=== PATIENT | male | born 1935 | race Caucasian/White ===

== ENCOUNTER 2021-02-25 09:23 | Outpatient (REF) | payer MEDICARE, OTHER, SELFPAY ==
[2021-02-25 11:28] LABS: MANUAL DIFF FLAG NO
[2021-02-25 11:49] LABS: Basophils Percent Auto 0.2 % (0-2); Eosinophils Absolute Auto 0.1 X10*3/uL (0.0-0.4); Eosinophils Percent Auto 0.7 % (0-4); Hematocrit 45.1 % (42-52); Hemoglobin 14.3 g/dl (14.0-18.0); Imm Gran Abs Auto 0.02 X10*3/uL (0.00-0.03); Imm Gran Pct Auto 0.2 % (0.0-0.4); Lymphocytes Absolute Auto 1.1 X10*3/uL (1.2-4.9); Lymphocytes Percent Auto 12.9 % (20-40); Mean Corpuscular HGB Conc 31.7 g/dl (31.0-36.0); Mean Corpuscular Hemoglobin 27.9 pg (27.0-33.0); Mean Corpuscular Volume 88.1 fL (80-98); Monocytes Absolute Auto 0.5 X10*3/uL (0.1-1.2); Monocytes Percent Auto 6.2 % (2-11); Neutrophils Percent Auto 79.8 % (45-73); Platelet Count 155 X10*3/uL (160-400); Red Blood Count 5.12 X10*6/uL (4.60-5.80); Red Cell Distribution Width 13.1 % (11.0-16.0); White Blood Count 8.8 X10*3/uL (4.8-10.8)
[2021-02-25 12:16] LABS: Alanine Aminotransferase 13 U/L (0-40); Alkaline Phosphatase 59 U/L (39-117); Anion Gap 14 (12-20); Aspartate Amino Transferase 16 U/L (5-37); Bilirubin Total 0.8 mg/dL (0.0-1.0); Blood Urea Nitrogen 15 mg/dL (9-16); Calcium 8.8 mg/dL (8.4-10.2); Carbon Dioxide 23 mmol/L (22-29); Chloride 107 mmol/L (96-108); Estimated Glomerular Filt Rate 47; Glucose Random 105 mg/dL (60-115); Sodium 140 mmol/L (135-145); Total Protein 6.9 g/dL (6.5-8.0)
[2021-02-26 21:36] LABS: Lyme Abs Screen <0.90 index
== END 2021-02-25 09:24 | disposition home or self-care (01) ==
LOC: HO.HMGCLDS 09:23
PROVIDERS: Visit Provider Nurse Practitioner Family
DX: R19.7 Diarrhea, unspecified (principal); M25.50 Pain in unspecified joint
CPT/HCPCS: 36415; 80053; 85025; 86617; 86618

== ENCOUNTER 2024-04-13 10:19 | Outpatient (REF) | payer MEDICARE, OTHER, SELFPAY ==
--- NOTE | ~2024-04-13 | MR_ITS ---
MR LUMBAR SPINE WITHOUT CONTRAST CLINICAL INFORMATION: Chronic low back pain. COMPARISON: None available. TECHNIQUE: MRI of the lumbar spine was obtained using routine sequences without contrast. FINDINGS: There are 5 nonrib-bearing lumbar-type vertebral bodies. There is grade 1 retrolisthesis of L2 on L3 and there is grade 1 anterolisthesis of L4 on L5. Vertebral body heights are maintained. Modic type I and Modic type II endplate signal changes at L2-L3. No additional bone marrow edema. No acute fractures. Chronic inferior endplate compression deformity at T12. There is an intraosseous hemangioma within the L3 vertebral body. There is moderate to severe disc volume loss at L2-L3. Disc desiccation at all lumbar levels. Conus terminates at the T12-L1 level. Left-sided parapelvic cysts and simple bilateral renal cysts. No significant extra spinal soft tissue findings. Hypertrophic degenerative changes across the SI joints bilaterally. Bilateral perinephric stranding. T12-L1: A right lateral disc osteophyte protrusion and facet arthropathy result in moderate to severe right foraminal stenosis with mass effect on the exiting right T12 nerve root. L1-L2: Diffuse annular disc bulge and severe bilateral facet arthropathy and ligamentum flavum thickening. Findings in concert result in left subarticular zone stenosis with mild mass effect on the traversing left L2 nerve root as well as moderate left-sided foraminal stenosis with mild mass effect on the exiting left L1 nerve root. L2-L3: Diffuse disc osteophyte complex and severe bilateral facet arthropathy and ligamentum flavum thickening. Findings in concert result in severe central canal stenosis as well as moderate to severe left and moderate right foraminal stenosis with mass effect on the exiting left greater than right L2 nerve roots. L3-L4: Diffuse annular disc bulge and severe bilateral facet arthropathy and ligamentum flavum thickening. Findings in concert result in severe central canal stenosis and moderate bilateral foraminal stenosis with mild mass effect on the exiting L3 nerve roots bilaterally. L4-L5: Diffuse annular disc bulge and severe bilateral facet arthropathy and ligamentum flavum thickening. Findings in concert result in severe central canal stenosis. A right lateral disc protrusion and advanced facet arthropathy result in severe right-sided foraminal stenosis with compression of the exiting right L4 nerve root. L5-S1: A far right lateral disc osteophyte protrusion results in compression of the extraforaminal right L5 nerve root. Background annular disc bulge and severe bilateral facet arthropathy. No central canal stenosis. Mild left foraminal encroachment. MR/MR lumbar spine wo con IMPRESSION: * At L5-S1, a far right lateral disc osteophyte protrusion results in compression of the extraforaminal right L5 nerve root. * At L4-L5, advanced multifactorial degenerative changes result in severe central canal stenosis and a right lateral disc protrusion and advanced facet arthropathy result in severe right-sided foraminal stenosis with compression of the exiting right L4 nerve root. * At L3-L4, advanced multifactorial degenerative changes result in severe central canal stenosis and moderate bilateral foraminal stenosis with mild mass effect on the exiting L3 nerve roots bilaterally. * At L2-L3, advanced multifactorial degenerative changes result in severe central canal stenosis as well as moderate to severe left and moderate right foraminal stenosis with mass effect on the exiting left greater than right L2 nerve roots. * At L1-L2, multifactorial degenerative changes result in left subarticular zone stenosis with mild mass effect on the traversing left L2 nerve root as well as moderate left-sided foraminal stenosis with mild mass effect on the exiting left L1 nerve root. * At T12-L1, a right lateral disc osteophyte protrusion and facet arthropathy result in moderate to severe right foraminal stenosis with mass effect on the exiting right T12 nerve root.
== END 2024-04-13 10:20 | disposition home or self-care (01) ==
LOC: HO.MRI 10:19
PROVIDERS: PCP Family Medicine; Visit Provider Physical Medicine & Rehabilitation
DX: M48.061 Spinal stenosis, lumbar region without neurogenic claudication (principal)
CPT/HCPCS: 72148

== ENCOUNTER 2025-01-05 08:31 | Outpatient (AMB) | payer MEDICARE, OTHER, SELFPAY ==
--- OUTSIDE RECORDS SUMMARY | 2025-01-05 08:35 | XMS_ITS | Clinical Summary ---
Author Organization [employer] Address [address] [place] [address] Phone Care Team Providers Care Nuclear Control Room Operator Name Role Phone Leonila Brooks MD Primary Care Provider [phone] Allergies No known active allergies Medications alfuzosin (UROXATRAL) 10 mg 24 hr tablet TAKE 1 TABLET BY MOUTH EVERY DAY 07/14/20 21 Active aspirin 81 mg EC tablet TAKE 1 TABLET DAILY DIRECTED. 09/29/19 12 Active rosuvastatin (CRESTOR) 40 mg tablet TAKE 1 TABLET BY MOUTH AT BEDTIME 09/29/19 12 Active pregabalin (LYRICA) 75 mg capsule Take 1 capsule (75 mg total) by mouth 2 (two) times a day. 03/28/20 24 Active celecoxib (CeleBREX) 100 mg capsule Take 1 capsule (100 mg total) by mouth 2 (two) times a day. Active FLUoxetine (PROzac) 20 mg capsuleIndicatio ns:Anxiety Take 1 capsule (20 mg total) by mouth 1 (one) time each day. 30 each 1 10/06/19 25 Active amLODIPine (NORVASC) 5 mg tabletIndication s:Primary hypertension Take 1 tablet (5 mg total) by mouth 1 (one) time each day. 90 each 2 11/15/19 25 025 Active valsartan-hydroC HLOROthiazide (DIOVAN-HCT) 160-25 mg per tabletIndication s:Primary hypertension Take 1 tablet by mouth 1 (one) time each day. 90 each 2 11/15/19 25 08/31/2 025 Active omeprazole (PriLOSEC) [address] capsuleIndicatio ns:Gastroesophag eal reflux disease with esophagitis without hemorrhage TAKE 1 CAPSULE ONCE DAILY; DO NOT CRUSH OR CHEW 90 capsule 12/19/19 25 Active omeprazole (PriLOSEC) [address] capsuleIndicatio ns:Gastroesophag eal reflux disease with esophagitis without hemorrhage Take 1 capsule (20 mg total) by mouth 1 (one) time each day. Do not crush or chew. 90 capsule 09/29/19 25 025 Discontinued Active Problems Problem Noted Date Diagnosed Date Abnormal chest x-ray 05/04/2022 Arthritis of left hip 05/04/2022 BPH (benign prostatic hyperplasia) 05/04/2022 BMI 30.0-30.9,adult 05/04/2022 Coronary arteriosclerosis 05/04/2022 Esophageal reflux 05/04/2022 Fatigue 05/04/2022 HTN (hypertension) 05/04/2022 Hypercholesterolemia 05/04/2022 Low HDL (under 40) 05/04/2022 Lumbar canal stenosis 05/04/2022 Nocturia 05/04/2022 Obstructive sleep apnea 05/04/2022 ANU (obstructive sleep apnea) 05/04/2022 Pre-diabetes 05/04/2022 Primary osteoarthritis of right hip 05/04/2022 Shoulder pain, right 05/04/2022 Encounters Date Type Department Care Team Description 12/19/2024 9:00 AM EDT Office Visit [facility] [address] [place] [address] Myra Villalta MD ANU (obstructive sleep apnea) (Primary Dx); BMI 32.0-32.9,adult; Hypertension, unspecified type 11/14/2024 8:15 AM EST Office Visit [facility] [place] [address] [place] [address] Leonila Brooks MD Primary hypertension 11/06/2024 Telephone [facility] [place] [address] [place] [address] Leonila Brooks MD 10/13/2024 12:30 PM EST Office Visit [facility] [address] [place] [address] Leonila Brooks MD Primary hypertension (Primary Dx); Hypercholesterolemia from Last 3 Months Surgical History Surgery Date Site/Laterality Comments AAA REPAIR APPENDECTOMY CHILDHOOD CORONARY ARTERY BYPASS GRAFT 05/14/2005 - 06/12/2005 X3 STENT PLACEMENT 09/13/2003 - 09/12/2004 CATH STENT PLACEMENT VS FEMORAL POPLITEAL STENT WITH AND WITHOUT ANGIOPLASTY Medical History Medical History Date Comments Chronic renal disease, stage 3, moderately decreased glomerular filtration rate between 30-59 mL/min/1.73 square meter (CMS/HCC V24, CMS/HCC V28) Common cold Leukocytosis Viral pneumonia Community acquired pneumonia Acute bronchitis Family History Medical History Relation Name Comments CARDIAC DISRODER Father Heart failure Father ACUTE MYOCARDIAL INFARCTION Mother Relation Name Status Comments Father Mother Social History Tobacco Use Types Packs/Day Years Used Date Smoking Tobacco: Former Cigarettes Smokeless Tobacco: Former Tobacco Cessation:Counseling Given: Not Answered Alcohol Use Standard Drinks/Week Comments Defer 0 (1 standard drink = 0.6 oz pur e alcohol) Housing Instability Answer Date Recorde d Are you worried that in the next 2 months you may not have stable housing? No 12/19/2024 Food Access & Nutrition Answer Date Rec orded Do you have access to a vari ety of food including fruits and vegetables? Yes 12/19/2024 Health Literacy Answer Date Recorded How often do you need to hav e someone help you when you read instructions, pamphlets, or other written material from your doctor or pharmacy? Never 12/19/2024 Caregiver: How often do you need to have someone help you when you read instructions, pamphlets, or other written material from your doctor or pharmacy? Not on file 12/19/2024 Financial Risk Answer Date Recorded How hard is it for you to pa y for the very basics like food, housing, medical care, and air conditioning / heating? Not very hard 12/19/2024 Transportation Answer Date Recorded Has the lack of transportati on kept you from meetings, work, or from getting things needed for daily living? No Has the lack of transportati on kept you from medical appointments or from getting medications? No 12/19/2024 Social Isolation Answer Date Recorded How often do you feel lonely or isolated from th ose around you? Never 12/19/2024 Food Risk Answer Date Recorded Within the past 12 months we worried whether our food would run out before we got money to buy more. Never true 12/19/2024 Within the past 12 months th e food we bought just didn't last and we didn't have money to get more. Never true 12/19/2024 Sex and Gender Information Value Date Recorded Sex Assigned at Male 12/13/2024 6:41 AM EDT Legal Sex Male 2:05 PM EDT Gender Identity Male 12/13/2024 6:41 AM EDT Sexual Orientation Straight 12/13/2024 6: 41 AM EDT Obstetrics History Last Filed Vital Signs Vital Sign Reading Time Taken Comments Blood Pressure 119/46 12/19/2024 8:46 AM EDT being followed by cardiology Pulse 64 12/19/2024 8:44 AM EDT Temperature 36.6 ??C (97.9 ??F) 12/19/2024 8 :44 AM EDT Respiratory Rate 16 12/19/2024 8:44 AM EDT Oxygen Saturation 97% 12/19/2024 8:4 4 AM EDT Inhaled Oxygen Concentration - - Weight 101 kg (223 lb) 12/19/2024 8:44 AM EDT Height 177.8 cm (5' 10 ) 12/19/2024 8:4 4 AM EDT Body Mass Index 32 12/19/2024 8:44 AM EDT Plan of Treatment Upcoming Encounters Date Type Department Care Team (Late st Contact Info) Description 07/05/2025 8:30 AM EDT Office Visit [facility] [address] [facility] [address] [place] [address] Myra Villalta MD [address] [facility] [address] [place] [address] Health Maintenance Due Date Last Done Comments DTaP,Tdap,and Td Vaccines (1 - Tdap) 1954 Medicare Annual Wellness Visit 03/22/2022 Hypertension/CHF/CAD Annual BMP Blood Test 07/14/2022 07/14/2021, 04/18/2021 Zoster Vaccines (2 of 2) 01/03/2024 11/08/2023 COVID-19 Vaccine ( season) 2024 09/23/2023, 06/26/2022, 12/11/2021, Additional history exists Influenza Vaccine (Season Ended) 2025 06/26/2022, 05/27/2021, 06/12/2020, Additional history exists Depression Screening 12/19/2025 12/19/2024 Falls Risk Assessment 12/19/2025 12/19/2024, 025 Social Influencers of Health Screening 12/19/2025 12/19/2024 Cholesterol Screening (Lipid Panel) 12/13/2029 12/13/2024, 06/12/2024, 11/27/2021 Pneumococcal Vaccine: 50+ Years Completed 02/06/2022, 06/08/2005 RSV Immunization Adult Patients Completed 09/01/2023 HIB Vaccines Aged Out No longer eligi ble based on patient's age to complete this topic HPV Vaccines Aged Out No longer eligi ble based on patient's age to complete this topic Hepatitis A Vaccines Aged Out No long er eligible based on patient's age to complete this topic Hepatitis B Vaccines Aged Out No long er eligible based on patient's age to complete this topic IPV Vaccines Aged Out No longer eligi ble based on patient's age to complete this topic MMR Vaccines Aged Out No longer eligi ble based on patient's age to complete this topic Meningococcal ACWY Vaccine Aged Out N o longer eligible based on patient's age to complete this topic Meningococcal B Vaccine Aged Out No l onger eligible based on patient's age to complete this topic RSV Immunization Patients Under 20 months Aged Out No longer eligible based on patient's age to complete this topic Varicella Vaccines Aged Out No longer eligible based on patient's age to complete this topic Procedures Procedure Name Priority Date/Time Associated Diagnosis Comments PROSTATE SPECIFIC ANTIGEN TOTAL AND FREE Routine 12/13/2024 6:51 AM EDT Elevated prostate specific antigen (PSA) LIPID PANEL Routine 12/13/2024 6:51 AM EDT Hypercholesterolemi a HM ANNUAL BMP BLOOD TEST Routine 07/14/2021 from Last 3 Months or Most Recently Relevant to Health Maintenance Results * Prostate specific antigen, total and free (12/13/2024 6:51 AM EDT) PSA 1.69 0.00 - 4.00 ng/mL LAB CHEMISTRY METHOD 12/13/2024 10:41 AM EDT [facility] PSA, Free 0.55 0.20 - 4.90 ng/mL LAB CHEMISTRY METHOD 12/13/2024 10:41 AM EDT [facility] PSA, Free Pct 32.5 See Comment % LAB CHEMISTRY METHOD 12/13/2024 10:41 AM EDT [facility] Blood Venous blood specimen / Unknown Venipuncture / Unknown 12/13/2024 6:51 AM EDT 12/13/2024 6:51 AM EDT Narrative [facility] - 12/13/2024 10:41 AM EDT According to the reagent meat and poultry inspector, consumption of biotin supplements, or multivitamins containing biotin, may interfere with the results of this assay. For individuals taking biotin containing supplements, testing at least three days after cessation of supplement consumption is recommended. See table below for probability of Prostate Cancer (patients with negative FERCHO). Parentheses indicate 95% Confidence Intervals in %. ?%Free ? Age Group (Years) ? All ? PSA ?50-59 ?60-69 ? 70+ ?Ages PSA ?<=10% ? 45.3% ?59.0% ?70.3% ? 55.4% 4.0-10.0 ??(33.8-57.3)(46.5-68.9)(53.0-84.1)(48.1-62.6) ng/mL ? 11-19% ? 22.5% ?30.3% ?38.0% ? 29.4% ? (15.1-31.4)(23.6-37.7)(26.7-50.3)(24.7-34.4) ? >=20% ? 0.0% ?25.0% ?28.3% ? 24.2% ? N/A ?(12.7-41.2)(16.0-43.5)(16.0-34.1) The diagnostic usefulness of % Free PSA has not been established in patients with Total PSA below 2.6 ng/mL. In men with PSA values above 10 ng/mL, prostate cancer risk is determined by Total PSA alone. NCCN Guidelines Prostate Cancer Early Detection Age(yrs) ??FERCHO Finding ?PSA Level ? Normal ?< 1 ??ng/mL ?Repeat 2-4 year intervals 45-75 ? Normal ?1 - 3 ng/mL ?? Repeat 1-2 year intervals ? Very Suspicious ? > 3 ??ng/mL ?See indications for biopsy >75* ?Normal ?< 4 ng/mL ? Repeat 1-4 year intervals ?(if no other indications for biopsy) ?Very Suspicious ?>= 4 ng/mL ?See indications for biopsy * Testing men >75 yrs should be done with caution and only in very healthy men with little or no comorbidity as a large proportion may harbor cancer that would be unlikely to affect their life expectancy. Indications for Biopsy - Repeat PSA ? - Consider % Free PSA, - FERCHO, if not ?4Kscore or PHI ?- TRUS-guided biopsy performed during ?>>> ??- Consider ? >>> ??- Follow up in 6-12 initial risk assessment ?multiparametric MRI? months with PSA/FERCHO - Workup for benign disease The level of PSA correlates with the risk of prostate cancer. The Prostate Cancer Prevention Trial (PCPT) demonstrated that 15% of men with a PSA level of <=4.0 ng/mL and a normal FERCHO had prostate cancer diagnosed on [id number] biopsies. Approximately 30% to 35% of men with serum PSA between 4 to 10 ng/mL will be found to have cancer. Total PSA levels >10 ng/mL confer a greater than 67% likelihood of prostate cancer. Based on the??National Comprehensive Cancer Network (NCCN) Guidelines Version 2.2018 Prostate Cancer Early Detection. us Jose Rosa MD LAB BLOOD ORDERABLES Final Re sult [facility] [address] [place] [address], * Lipid panel (12/13/2024 6:51 AM EDT) Cholesterol 96 <200 mg/dL LAB CHEMISTRY METHOD 12/13/2024 10:36 AM EDT [facility] Comment: Cholesterol Risk Factors (NCEP 2004 ATP III update) Desirable: ?<200 mg/dL Borderline Risk: ? 200-239 mg/dL High Risk: ?>239 mg/dL Triglycerides 96 0 - 150 mg/dL LAB CHEMISTRY METHOD 12/13/2024 10:36 AM EDT [facility] HDL 44 23 - 92 mg/dL LAB CHEMISTRY METHOD 12/13/2024 10:36 AM EDT [facility] LDL Calculated 33 <100 mg/dL LAB CHEMISTRY METHOD 12/13/2024 10:36 AM EDT [facility] Comment: LDL Cholesterol Risk Factors (NCEP 2004 ATP III update) Desirable for high risk CHD: ??< 100 ??mg/dL Desirable for moderate risk CHD (2 or more risk factors): < 130 ??mg/dL Desirable for low risk CHD (0-1 risk factors): ??< 160 ??mg/dL VLDL Cholesterol Kevin 19.2 mg/dL LAB CHEMISTRY METHOD 12/13/2024 10:36 AM EDT [facility] Blood Venous blood specimen / Unknown Venipuncture / Unknown 12/13/2024 6:51 AM EDT 12/13/2024 6:51 AM EDT Leonila Brooks MD LAB BLOOD ORDERABLES Final Re sult [facility] [address] [place] [address], * Annual BMP Blood Test (07/14/2021) Annual BMP Blood Test ABSTRACTED us Historical Provider MD HEALTH MAINTENANCE Final Result from Last 3 Months or Most Recently Relevant to Health Maintenance [place] [address] MEDICARE [facility] Care Teams Nuclear Control Room Operator Relationship Specialty Start Date End Date Leonila Brooks MD [address] [place] [address] PCP - General Internal Medicine 08/26/23
--- OUTSIDE RECORDS SUMMARY | 2025-01-05 08:35 | XMS_ITS | Patient Health Record ---
Author Organization Sudarshan coronado M.D., F.A.C.Racheal, F.A.CAdarsh Address [address] [address] [place] [address] Care Team Providers Care Psychiatric Nursing Assistant Name Role Phone Vicky Delgadillo Primary Care Provider Sudarshan Marques Unavailable REASON FOR REFERRAL No Information MEDICATIONS Medication SIG (Take, Route, Frequency, Duration) Notes Start Date End Date Status Fish Oil *please review f or potential update for e-prescription and drug interaction check* Active Valsartan 80mg p.o. q.d. *please review f or potential update for e-prescription and drug interaction check* Active Centrum Silver *please review f or potential update for e-prescription and drug interaction check* Active Aspirin (coated) 81mg p.o. q.d. *please review for potential update for e-prescription and drug interaction check* Active Rosuvastatin Calcium 40mg p.o. q.h.s. *please review for potential update for e-prescription and drug interaction check* Active Omeprazole 20mg p.o. q.d. 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
--- NOTE | 2025-01-05 09:34 | MHC.OFFWIV ---
Intake Vital Signs 01/05/25 09:36 Height 5 ft 10 in Weight 227 lb BMI 32.6 BP 150/80 H Position Sitting Pulse 73 Pulse Source Pulse Oximeter Pulse Oximetry (%) 98 Oxygen Delivery Method Room Air Intake Visit Reasons: [employer]-rt shoulder/hand pain from a fall Intake Note: Patient here for right shoulder and arm pain that started yesterday after a fall outside. Patient Tobacco Use Status: Former Tobacco user Allergies No Known Allergies Allergy (Verified 01/05/25 09:36) Do you need a note to return to daycare/school/sports/work: No HPI [employer]-rt shoulder/hand pain from a fall HPI Details This is an 89-year-old male patient who presents to the walk-in clinic today with his daughter present. He was at the airport yesterday returning from [place], and he missed the step off of a curb, and caught a fall with his right hand. He cut the palm of his hand and felt a pull in his right wrist and right shoulder upon catching himself. He did not hit his head. He washed hand and covered area with a band aid. Today he has pain in the right wrist and right shoulder in his bicep area with movement. [facility] Social History Patient Tobacco Use Status: Former Tobacco user Review of Systems Const All systems reviewed & are unremarkable except as noted in HPI and below Physical Exam Vital Signs: Last Vital Signs Pulse 73 01/05/25 09:36 BP 150/80 H 01/05/25 09:36 Pulse Ox 98 01/05/25 09:36 Oxygen Delivery Method Room Air 01/05/25 09:36 BMI result Body Mass Index 32.6 Const General: cooperative, healthy appearing and no acute distress Orientation/consciousness: patient oriented x3 Limitations: no limitations HEENT Head: Yes normal to inspection Resp Effort & Inspection: normal respiratory effort Auscultation: clear to auscultation bilaterally Cardio Rate: regular rate Rhythm: regular rhythm Skin Other: skin tear/abrasion palmar aspect right hand. Neuro General: patient oriented x3 Extrem Other: Right shoulder pain with forward flexion and abduction at approx 70 degrees. No cuff tenderness. No bruising. Right wrist pain with flexion. No tenderness to palp. No bruising. General: Yes capillary refill normal and Yes no clubbing, cyanosis or edema Psych Appearance: grossly normal Mental Status: mental status grossly normal Speech and movement: Normal speech and movement present Assessment & Plan Assessment & Plan (1) Skin tear of right hand without complication: Code(s): S61.411A - Laceration without foreign body of right hand, initial encounter Qualifiers: Encounter type: initial encounter Qualified Code(s): S61.411A - Laceration without foreign body of right hand, initial encounter Plan: Area cleansed with normal saline. Small piece of Xeroform dressing applied with DSD cover. Advised patient to monitor area and keep it clean. Warning signs for infection reviewed, and to return to clinic if these develop. (2) Right shoulder pain: Code(s): M25.511 - Pain in right shoulder Qualifiers: Chronicity: acute Qualified Code(s): M25.511 - Pain in right shoulder Plan: Right shoulder and wrist pain, status post fall yesterday. Imaging appears unremarkable. Advised ice application for the next day or so, and use of NSAIDs/Tylenol as needed for discomfort. If pain worsens or continues beyond the next several days, he should follow up with his PCP for further evaluation and possible referral for physical therapy/orthopedics as needed. Patient and his daughter who were present at visit both verbalized understanding and agreed to plan. Orders: Orders XR shoulder RT min 2V Today Z91.81 - History of falling Coding Level of Care Code Est Pt Level 4 (31927) Diagnoses Skin tear of right hand without complication, initial encounter S61.411A Encounter type: initial encounter Acute pain of right shoulder M25.511 Chronicity: acute
[2025-01-05 09:36] VITALS: BP 150/80; PULSE 73; O2SAT 98; BMI 32.6
== END 2025-01-05 10:58 | disposition home or self-care (01) ==
PROVIDERS: PCP Family Medicine; Visit Provider Nurse Practitioner Family
DX: S61.411A Laceration without foreign body of right hand, initial encounter (principal); M25.511 Pain in right shoulder

== ENCOUNTER 2025-01-05 08:31 | Outpatient (REF) | payer MEDICARE, OTHER, SELFPAY ==
--- NOTE | ~2025-01-05 | XR_ITS ---
EXAMINATION: XR WRIST, RIGHT CLINICAL INFORMATION: Z91.81 - History of falling COMPARISON: None available. TECHNIQUE: PA, lateral, and oblique views of the right wrist. FINDINGS: No fracture, dislocation, or suspicious bone lesion. Normal bone mineralization. Normal alignment. Mild osteoarthritis at the first CMC joint. Mild radiocarpal joint space narrowing. Joint spaces otherwise normal. Soft tissues appear normal aside from diffuse vascular calcification. XR/XR wrist RT min 3V IMPRESSION: No acute bony abnormalities. Electronically signed by: Alonso Woodson MD 01/05/2025 11:00 AM EDT
--- NOTE | ~2025-01-05 | XR_ITS ---
EXAMINATION: XR SHOULDER, RIGHT CLINICAL INFORMATION: Z91.81 - History of falling COMPARISON: 02/20/2019. TECHNIQUE: Three views of the right shoulder. FINDINGS: There is mild diffuse osteopenia. No fracture, dislocation, or suspicious bone lesion. Normal alignment. The glenohumeral joint demonstrates moderate osteoarthrosis with mild undersurface spurs. The AC joint demonstrates mild undersurface spurring. There is a type II acromion. No undersurface spurring. The subacromial space is preserved. Remainder of the soft tissue and bony structures appear normal. Sternotomy wires incidentally noted. XR/XR shoulder RT min 2V IMPRESSION: 1. No acute bony abnormalities. Osteopenia. 2. 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 Electronically signed by: Alonso Woodson MD 01/05/2025 11:02 AM EDT
--- OUTSIDE RECORDS SUMMARY | 2025-01-05 10:42 | XMS_ITS | Clinical Summary ---
Author Organization [employer] Address [address] [place] [address] Phone Care Team Providers Care Wine Specialist Name Role Phone Leonila Brooks MD Primary Care Provider Allergies No known active allergies Medications alfuzosin [...] Description 12/19/2024 9:00 AM EDT Office Visit [facility] Pulmonary [address] [place] [address] Myra Villalta MD ANU (obstructive sleep apnea) (Primary Dx); BMI 32.0-32.9,adult; Hypertension, unspecified type 11/14/2024 8:15 AM EST Office Visit [facility] [place] [address] [place] [address] Leonila Brooks MD Primary hypertension 11/06/2024 Telephone [facility] [place] [address] [place] [address] Leonila Brooks MD 10/13/2024 12:30 PM EST Office Visit [facility] [address] [place] [address] Leonila Brooks MD Primary hypertension [...] Office Visit [facility] [address] [facility] [facility] [address] [place] [address] Myra Villalta MD [address] [place] [address] Health Maintenance Due Date Last [...] LAB CHEMISTRY METHOD 12/13/2024 10:41 AM EDT [facility] PSA, Free 0.55 0.20 - 4.90 ng/mL LAB CHEMISTRY METHOD 12/13/2024 10:41 AM EDT [facility] PSA, Free Pct 32.5 See Comment % LAB CHEMISTRY METHOD 12/13/2024 10:41 AM EDT [facility] Blood Venous blood specimen / Unknown Venipuncture / Unknown 12/13/2024 6:51 AM EDT 12/13/2024 6:51 AM EDT Narrative [facility] - 12/13/2024 10:41 AM EDT According to the reagent gas operation manager, consumption of biotin supplements, or multivitamins containing [...] normal FERCHO had prostate cancer diagnosed on [id number] biopsies. Approximately 30% to 35% of men with serum PSA between 4 to 10 ng/mL will be found to have cancer. Total PSA levels >10 ng/mL confer a greater than 67% likelihood of prostate cancer. Based on the??National Comprehensive Cancer Network (NCCN) Guidelines Version 2.2018 Prostate Cancer Early Detection. us Jose Rosa MD LAB BLOOD ORDERABLES Final Re sult [facility] [address] [place] [address], * Lipid panel (12/13/2024 6:51 AM EDT) Cholesterol 96 <200 mg/dL LAB CHEMISTRY METHOD 12/13/2024 10:36 AM EDT [facility] Comment: Cholesterol Risk Factors (NCEP 2004 ATP III update) Desirable: ?<200 mg/dL Borderline Risk: ? 200-239 mg/dL High Risk: ?>239 mg/dL Triglycerides 96 0 - 150 mg/dL LAB CHEMISTRY METHOD 12/13/2024 10:36 AM EDT [facility] HDL 44 23 - 92 mg/dL LAB CHEMISTRY METHOD 12/13/2024 10:36 AM EDT [facility] LDL Calculated 33 <100 mg/dL LAB CHEMISTRY METHOD 12/13/2024 10:36 AM EDT [facility] Comment: LDL Cholesterol Risk Factors (NCEP 2004 ATP III update) Desirable for high risk CHD: ??< 100 ??mg/dL Desirable for moderate risk CHD (2 or more risk factors): < 130 ??mg/dL Desirable for low risk CHD (0-1 risk factors): ??< 160 ??mg/dL VLDL Cholesterol Kevin 19.2 mg/dL LAB CHEMISTRY METHOD 12/13/2024 10:36 AM EDT [facility] Blood Venous blood specimen / Unknown Venipuncture / Unknown 12/13/2024 6:51 AM EDT 12/13/2024 6:51 AM EDT Leonila Brooks MD LAB BLOOD ORDERABLES Final Re sult [facility] [address] [place] [address], * Annual BMP Blood Test (07/14/2021) Annual BMP Blood Test ABSTRACTED us Historical Provider MD HEALTH MAINTENANCE Final Result from Last 3 Months or Most Recently Relevant to Health Maintenance [place] [address] MEDICARE [facility] Care Teams Wine Specialist Relationship Specialty Start Date End Date Leonila Brooks MD [address] [place] [address] PCP - General Internal Medicine 08/26/23
== END 2025-01-05 08:32 | disposition home or self-care (01) ==
LOC: HO.HMGCX 08:31
PROVIDERS: PCP Family Medicine; Visit Provider Nurse Practitioner Family
DX: S61.411A Laceration without foreign body of right hand, initial encounter (principal); M25.511 Pain in right shoulder; M25.531 Pain in right wrist; Z91.81 History of falling
CPT/HCPCS: 73030; 73110; 99212

== ENCOUNTER → 2025-01-05 10:20 | Outpatient (BNV) | payer MEDICARE, OTHER, SELFPAY | PROVIDERS: PCP Family Medicine; Visit Provider Radiology Diagnostic Radiology | DX: M25.511 Pain in right shoulder (principal); M25.531 Pain in right wrist | CPT/HCPCS: 73030; 73110 ==

== ENCOUNTER 2025-02-12 12:44 | Emergency (ER) | payer MEDICARE, OTHER, SELFPAY ==
--- NOTE | ~2025-02-12 | XR_ITS ---
EXAMINATION: XR CHEST CLINICAL INFORMATION: gen weakness COMPARISON: 05/18/2018. TECHNIQUE: Frontal view of the chest was obtained. FINDINGS: Prior median sternotomy and probable CABG. The cardiac, hilar, and mediastinal contours are normal. The lungs are clear bilaterally. Probable calcified pleural plaque on the left. No pneumothorax or effusion. No focal osseous or soft tissue abnormality. There are degenerative changes in both shoulder joints and throughout the spine. XR/XR chest 1V IMPRESSION: No active pulmonary disease. No significant interval change. Electronically signed by: Alonso Woodson MD 02/12/2025 03:36 PM EDT
--- NOTE | ~2025-02-12 | CT_ITS ---
CLINICAL HISTORY: ARYAN r o obstructive uropathy CT of the abdomen and pelvis without intravenous contrast. No comparison. Findings: The liver is unremarkable. There are multiple gallstones. No pericholecystic inflammatory changes. There is a possible small left renal stone. No ureteral stones are identified and there is no hydronephrosis. There are several renal hypodensities bilaterally more prominent on the left statistically likely representing cysts. The spleen and pancreas are unremarkable. An abdominal aortic stent graft is in place. There is pleural thickening and calcification on the left that could relate to prior infection or hemorrhage. There is a small hiatal hernia. There is prominent stool in the colon. No diverticulitis is identified. The small bowel is nondilated. There is a small fat containing umbilical hernia. Degenerative changes cause severe multilevel spinal stenosis. The bladder is mildly distended. There is patchy scarring in the lower lungs with mild bronchiectasis on the left. 6 mm nodular density left lower lung. Impression: No hydronephrosis. Cholelithiasis. 6 mm nodule left lower lung. Consider comparison to previous or follow-up. Additional findings as above. This document has been electronically signed by: Armando Shaffer MD on 02/12/2025 17:28:49
[2025-02-12 13:02] VITALS: BP 134/84; PULSE 72; O2SAT 96
--- NOTE | 2025-02-12 13:05 | ED_ITS ---
HPI - General Adult General Chief complaint: Weakness Stated complaint: PT STS SUDDENLY FELT LETHARGIC PER EMS Time Seen by Provider: 02/12/25 12:53 Source: patient, EMS, RN notes reviewed and old records reviewed Mode of arrival: EMS History of Present Illness ED Provider: Ca López PA-C HPI narrative: 89-year-old male with PMHx PAD, CAD s/p bypass on ASA, presenting to the ED via EMS complaining of generalized fatigue / lethargy and legs giving out worsening over the past week. States symptoms are acute on chronic with limited ambulation / only able to walk short distances. Reports 2 falls in the past week without head strike or LOC. reports chronic hip / low back pain which he feels are attributing to symptoms. Denies lightheadedness/dizziness, CP/ SOB, abdominal pain. Related Data Home Medications ?Medication ?Instructions ?Recorded ?Confirmed aspirin 81 mg tablet,delayed 81 mg PO DAILY 02/25/21 release (Adult Aspirin Regimen) omega-3 fatty acids-fish oil 360 1 cap PO DAILY 02/25/21 mg-1,200 mg capsule (Fish Oil) omeprazole 20 mg capsule,delayed 20 mg PO DAILY 02/25/21 release rosuvastatin 40 mg tablet (Crestor) 40 mg PO DAILY 02/25/21 valsartan 80 mg tablet 80 mg PO DAILY 02/25/21 amlodipine 5 mg tablet 5 mg PO DAILY 01/05/25 Allergies Allergy/AdvReac Type Severity Reaction Status Date / Time No Known Allergies Allergy Verified 02/12/25 13:13 Review of Systems 2 Review of Systems: Yes all other systems are reviewed and are negative Constitutional: Constitutional: Reports as per HPI Neurologic: Denies Abnormal speech present COUNT INCLUDES THE [facility] Past Medical History Attestation statement: The following information was validated with the patient. Source: old records reviewed Social History Social History Patient Tobacco Use Status: Former Tobacco user Physical Exam ED Vital Signs: Vital Signs - 24 hr 02/12/25 13:10 02/12/25 16:15 02/12/25 16:16 Temperature 98.5 F Pulse Rate 83 70 75 Respiratory Rate 20 Blood Pressure 126/53 L 134/60 130/62 Pulse Oximetry 96 Oxygen Delivery Method Room Air 02/12/25 16:16 02/12/25 18:35 02/12/25 18:42 Temperature 97.5 F 97.5 F Pulse Rate 78 76 76 Respiratory Rate 18 18 Blood Pressure 132/58 L 132/62 132/62 Pulse Oximetry 96 96 Oxygen Delivery Method Room Air Room Air BMI result Body Mass Index 32.3 Const General: cooperative, healthy appearing and no acute distress Orientation/consciousness: patient oriented x3 Limitations: no limitations HENMT Head: Yes normal to inspection and Yes atraumatic Ears: hearing grossly normal bilaterally General nose exam: Normal external nose present Face and sinus: Yes normal facial exam Eyes General: appearance normal, both eyes and all related structures Pupils: Equal, round and reactive pupils present EOM: EOMs intact bilaterally Neck Neck: Yes normal visual inspection and Yes no meningeal signs Resp Effort & Inspection: normal respiratory effort and no respiratory distress Auscultation: clear to auscultation bilaterally Cardio Rate: regular rate Heart sounds: S1 normal heart sound present and S2 normal heart sound present GI Inspection: Yes normal to inspection Palpation (GI): Soft to palpation, nontender, no guarding and not rigid Back/Spine/Pelvis Other: No midline cervical/thoracic/lumbar spinous tenderness/step-off or deformity. No reproducible back pain Skin Rashes: no rashes Wounds: no wounds Neuro General: patient oriented x3, gait normal, tone normal, moves all extremities, no meningeal signs, no focal motor deficits and CN's II-XI intact bilaterally Cranial nerves: Yes CN's II-XII intact bilaterally, Yes Equal, round and reactive pupils present and Yes Bilaterally intact EOM present Cognition (Neuro): normal cognition Speech: No Abnormal speech present Gait exam (Neuro): Normal gait present Motor exam (neuro): 5/5 motor strength present throughout Extrem Other: Pelvis stable. General: Yes normal to inspection Course Course Course Narrative: -1523-- H&H with drop from priors 10.0/29.8 > will obtain occult stool >> denies melena, bloody stools, hematuria - ARYAN with BUN 65, creatinine 2.97 > patient denies history of known CKD. Will obtain CT to rule out obstructive uropathy /mass - chest x-ray unremarkable - occult stool negative CT abdomen pelvis wo IV con Impression: No hydronephrosis. Cholelithiasis. 6 mm nodule left lower lung. Consider comparison to previous or follow-up. Additional findings as above. > recommended admission for ARYAN however patient states he cares for his who is at home with Alzheimer's dementia and he has nobody to care for her. Patient will sign out AMA, is A&O x3, competent to make his own decisions. Recommended close PCP /urology follow-up and repeat labs in the next 5-7 days. Patient verbalized understanding. Is always welcome to return to the ED Medications Administered Discontinued Medications Generic Name Dose Route Start Last Admin Trade Name Latoya PRN Reason Stop Dose Admin Acetaminophen 650 mg 02/12/25 13:25 02/12/25 13:39 Acetaminophen 325 Mg Tablet PO 02/12/25 13:26 650 mg ONCE ONE Administration Sodium Chloride 1,000 mls @ 999 mls/hr 02/12/25 16:15 02/12/25 16:22 Ns IV 02/12/25 17:15 999 mls/hr .Q1H1M KARELY Administration Medical Decision Making Medical Decision Making MDM Narrative: 89-year-old male with PMHx PAD, CAD s/p bypass on ASA, presenting to the ED via EMS complaining of generalized fatigue / lethargy and legs giving out worsening over the past week. States symptoms are acute on chronic with limited ambulation / only able to walk short distances. on exam vital signs stable, NAD, nontoxic appearing, no focal neuro deficits, no appreciable weakness on exam. No midline spinous tenderness. Ambulating with steady gait in the ED without ataxia. Concern for failure to thrive vs arthralgia /chronic pain causing difficulty ambulating vs recurrent falls. Rule out metabolic infectious etiologies. Low suspicion for CVA / ICH Plan: EKG, labs, UA, viral testing, ? PT/case management Please refer to course for remaining clinical decision making, interpretation of labs/imaging results, and discussions with consultants and/or family members. Differential Diagnosis Differential Diagnoses: The differential diagnosis associated with the presentation includes As above Admission/Observation Consideration of admission/observation: Escalation of care including admission/observation considered Lab Data [facility] Lab Attestation statement: I reviewed the patient's lab results. 02/12/25 14:47 02/12/25 14:47 Labs: Lab Results 02/12/25 02/12/25 02/12/25 Range/Units 14:47 16:23 17:31 WBC 10.1 (4.8-10.8) X10*3/uL RBC 3.38 L (4.60-5.80) X10*6/uL Hgb 10.0 L (14.0-18.0) g/dl Hct 29.8 L (42.0-52.0) % MCV 88.2 (80.0-98.0) fL MCH 29.6 (27.0-33.0) pg MCHC 33.6 (31.0-36.0) g/dl RDW 13.7 (11.0-16.0) % Plt Count 118 L (160-400) X10*3/uL MPV 11.7 (9.4-12.4) fL Immature Gran % (Auto) 0.4 (0.0-0.4) % Neut % (Auto) 87.6 H (45-73) % Lymph % (Auto) 7.0 L (20-40) % Cole % (Auto) 4.2 (2-11) % Eos % (Auto) 0.5 (0-4) % Baso % (Auto) 0.3 (0-2) % Lymph # (Auto) 0.7 L (1.2-4.9) X10*3/uL Cole # (Auto) 0.4 (0.1-1.2) X10*3/uL Eos # (Auto) 0.1 (0.0-0.4) X10*3/uL Baso # (Auto) 0.0 (0.0-0.2) X10*3/uL Abs Immat Gran (auto) 0.04 H (0.00-0.03) X10*3/uL Absolute Neuts (auto) 8.9 H (2.0-8.3) x10*3/uL Absolute Nucleated RBC 0.000 (0.0-0.012) X10*3/uL Nucleated RBC % (auto) 0.0 (0.0-0.2) /100WBC Sodium 141 (135-145) mmol/L Potassium 4.8 (3.3-5.1) mmol/L Chloride 109 H (96-108) mmol/L Carbon Dioxide 24 (22-29) mmol/L Anion Gap 13 (12-20) BUN 65 H (9-16) mg/dL Creatinine 2.97 H (0.5-1.4) mg/dL Estim Creat Clear Calc 20.5 Estimated GFR 20 Random Glucose 114 (60-115) mg/dL Calcium 8.4 (8.4-10.2) mg/dL Magnesium 2.2 (1.6-2.6) mg/dL Total Bilirubin 0.4 (0.0-1.0) mg/dL Direct Bilirubin 0.2 (0.0-0.5) mg/dL AST 19 (5-37) U/L ALT 12 (0-40) U/L Alkaline Phosphatase 66 (39-117) U/L Total Protein 6.4 L (6.5-8.0) g/dL Albumin 3.6 (3.5-5.0) g/dL Urine Color Yellow Urine Appearance Clear Urine pH 5.5 (5.0-9.0) Ur Specific Beatrice 1.015 (1.005-1.025) Urine Protein 100 (2+) H (Neg-Trace) mg/dL Urine Glucose (UA) Negative (Negative) mg/dL Urine Ketones Negative (Negative) mg/dL Urine Blood Negative (Negative) Urine Nitrite Negative (Negative) Ur Leukocyte Esterase Negative (Negative) Urine RBC 0-2 (0-2) /HPF Urine WBC 0-5 (0-5) /HPF Ur Squamous Epith Cells 3-5 (0-2) /HPF Urine Bacteria None Seen (None Seen) Hyaline Casts >20 (0-2) /LPF Stool Occult Blood NEGATIVE (NEGATIVE) Influenza Type A (PCR) NEGATIVE (Negative) Influenza Type B (PCR) NEGATIVE (Negative) RSV RNA Qual (PCR) NEGATIVE (Negative) SARS-CoV-2 RNA (RT-PCR) NEGATIVE (Negative) Independent Interpretation I performed an independent interpretation of an: EKG and Plain X-Ray Radiology Impression Discussion of test interpretation with radiology: I have reviewed the radiologist's reading. Independent Historian Clinical information obtained from an independent historian. History obtained from or confirmed by: EMS External Record Review External record reviewed: Inpatient record, Office record, Outpatient record, Prior outpatient labs, Prior outpatient radiology, Primary care record and Outside ED record Tests considered The following testing was considered but not selected: As above Prescription Management I considered prescription management with: Other Chronic Conditions Patient?s care impacted by: Other Social Determinants Patient?s care significantly limited by Social Determinants of Health including: Other Social Determinant of Health Discharge Plan Discharge Clinical Impression: ARYAN (acute kidney injury) Patient Disposition: Left Against Medical Advice Instructions: Acute Kidney Injury (DC) Additional Instructions: you are in acute kidney failure you also have a left lung nodule. Please have close follow up with her PCP in regards to this We recommend you stay in the hospital You are always welcome to return to the emergency department You need to have very close follow up with your primary care doctor as well as Urology. Call to make an appointment You need repeat labs in 5-7 days Make sure you are staying hydrated at home If you develop worsening/persistent symptoms, fever, difficulty or inability to urinate, falls, abdominal pain, return to the ED Prescriptions: No Action valsartan 80 mg tablet 80 mg PO DAILY omeprazole 20 mg capsule,delayed release(DR/EC) 20 mg PO DAILY omega-3 fatty acids-fish oil [Fish Oil] 360-1,200 mg capsule 1 cap PO DAILY rosuvastatin [Crestor] 40 mg tablet 40 mg PO DAILY aspirin [Adult Aspirin Regimen] 81 mg tablet,delayed release (DR/EC) 81 mg PO DAILY amlodipine 5 mg tablet 5 mg PO DAILY Referrals: [facility] [Provider Group] - 3 days Jose Paulino MD [Primary Care Provider] - 1 day Stand Alone Forms: Against Medical Advice Interventions: ED Discharge Assessment Last Done: 02/12/25 18:42 Discharge Date/Time: 02/12/25 18:54 Print Language: Yi
[2025-02-12 13:10] VITALS: BP 126/53; PULSE 83; RESP 20; TEMP 36.9; O2SAT 96; BMI 32.3
--- NOTE | 2025-02-12 13:25 | ECG_ITS ---
Test Reason : WEAKNESS Blood Pressure : */* mmHG Vent. Rate : 67 BPM Atrial Rate : 67 BPM P-R Int : 200 ms QRS Dur : 86 ms QT Int : 398 ms P-R-T Axes : * 5 -4 degrees QTcB Int : 420 ms Sinus rhythm with Premature atrial complexes Otherwise normal ECG When compared with ECG of 17-Feb-2002 10:39, Premature atrial complexes are now Present Referred By: Ca López Electronically Signed By: TEGAN RODRIGUEZ
[2025-02-12] MEDS: Acetaminophen 325 MG TABLET 650 MG PO (13:39)
[2025-02-12 14:50] LABS: MANUAL DIFF FLAG NO
[2025-02-12 14:51] LABS: Basophils Percent Auto 0.3 % (0-2); Eosinophils Absolute Auto 0.1 X10*3/uL (0.0-0.4); Eosinophils Percent Auto 0.5 % (0-4); Hematocrit 29.8 % (42.0-52.0); Imm Gran Abs Auto 0.04 X10*3/uL (0.00-0.03); Imm Gran Pct Auto 0.4 % (0.0-0.4); Lymphocytes Absolute Auto 0.7 X10*3/uL (1.2-4.9); Mean Corpuscular HGB Conc 33.6 g/dl (31.0-36.0); Mean Corpuscular Hemoglobin 29.6 pg (27.0-33.0); Mean Corpuscular Volume 88.2 fL (80.0-98.0); Mean Platelet Volume 11.7 fL (9.4-12.4); Monocytes Absolute Auto 0.4 X10*3/uL (0.1-1.2); Monocytes Percent Auto 4.2 % (2-11); Neutrophils Absolute Auto 8.9 x10*3/uL (2.0-8.3); Neutrophils Percent Auto 87.6 % (45-73); Platelet Count 118 X10*3/uL (160-400); Red Blood Count 3.38 X10*6/uL (4.60-5.80); Red Cell Distribution Width 13.7 % (11.0-16.0); White Blood Count 10.1 X10*3/uL (4.8-10.8)
--- OUTSIDE RECORDS SUMMARY | 2025-02-12 15:06 | XMS_ITS | Patient Health Record ---
Author Organization Sudarshan coronado M.D., F.A.C.Racheal, F.A.CAdarsh Address [address] [place] [address] Care Team Providers Care Wheel Aligner Name Role Phone Vicky Delgadillo Primary Care Provider Sudarshan Marques Unavailable Reason For Referral No Information Medications Medication SIG (Take, Route, Frequency, Duration) Notes [...] for e-prescription and drug interaction check* Active Problems Problem Type SNOMED Code ICD Code Onset Dates Problem Status W/U Status Risk Notes Problem 032164967 Pure hypercholesterolemia (E78.0) 07/01/20 10 Active confirmed Problem [id number] ABDOMINAL ANEURY 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
[2025-02-12 15:38] LABS: Influenza A PCR NEGATIVE (Negative); Influenza B PCR NEGATIVE (Negative); Resp Syncy Virus RNA Qual PCR NEGATIVE (Negative); SARS COV2 PCR INHOUSE NEGATIVE (Negative)
[2025-02-12 16:02] LABS: Alanine Aminotransferase 12 U/L (0-40); Albumin Level 3.6 g/dL (3.5-5.0); Anion Gap 13 (12-20); Aspartate Amino Transferase 19 U/L (5-37); Bilirubin Direct 0.2 mg/dL (0.0-0.5); Bilirubin Total 0.4 mg/dL (0.0-1.0); Blood Urea Nitrogen 65 mg/dL (9-16); Calcium 8.4 mg/dL (8.4-10.2); Carbon Dioxide 24 mmol/L (22-29); Chloride 109 mmol/L (96-108); Creatinine Clr Calc Pharmacy 20.5; Estimated Glomerular Filt Rate 20; Glucose Random 114 mg/dL (60-115); Magnesium 2.2 mg/dL (1.6-2.6); Potassium 4.8 mmol/L (3.3-5.1); Sodium 141 mmol/L (135-145); Total Protein 6.4 g/dL (6.5-8.0)
[2025-02-12 16:15] VITALS: BP 134/60; PULSE 70
[2025-02-12 16:16] VITALS: BP 130/62; BP 132/58; PULSE 75; PULSE 78
[2025-02-12] MEDS: 0.9 % Sodium Chloride 1,000 ML 999 ML IV (16:22)
[2025-02-12 16:32] LABS: OBS Int Ctl Valid YES; OBS1 NEGATIVE (NEGATIVE)
[2025-02-12 17:43] LABS: Appearance Urine Clear; Color Urine Yellow; Glucose Urine UA Negative (Negative); Leukocyte Esterase Urine Negative (Negative); Nitrite Urine Negative (Negative); PH 5.5 (5.0-9.0); Specific Gravity - Urine 1.015 (1.005-1.025); UMIC TRIGGER UACC YES; Urine Blood Negative (Negative); Urine Ketones Negative (Negative); Urine Protein 100 (2+) mg/dL (Neg-Trace)
[2025-02-12 17:45] LABS: Alkaline Phosphatase 66 U/L (39-117)
[2025-02-12 18:12] LABS: Bacteria Urine None Seen (None Seen); Hyaline Casts Urine >20 /LPF (0-2); RBC Urine 0-2 /HPF (0-2); WBC Urine 0-5 /HPF (0-5)
[2025-02-12 18:35] VITALS: BP 132/62; PULSE 76; RESP 18; TEMP 36.4; O2SAT 96
[2025-02-12 18:42] VITALS: BP 132/62; PULSE 76; RESP 18; TEMP 36.4; O2SAT 96
== END 2025-02-12 18:54 | disposition left against medical advice (07) ==
PROVIDERS: Physician Assistant; Emergency Provider Emergency Medicine Emergency Medical Services; PCP Family Medicine
DX: N17.9 Acute kidney failure, unspecified (principal); R91.1 Solitary pulmonary nodule; R53.83 Other fatigue; R10.2 Pelvic and perineal pain; I25.10 Atherosclerotic heart disease of native coronary artery without angina pectoris; M54.50 Low back pain, unspecified; R94.31 Abnormal electrocardiogram [ECG] [EKG]; Z79.899 Other long term (current) drug therapy; Z03.818 Encounter for observation for suspected exposure to other biological agents ruled out
CPT/HCPCS: 0241U; 71045; 74176; 80048; 80076; 81001; 82272; 83735; 85025; 93005; 99284; 99285

== ENCOUNTER → 2025-02-12 13:25 | Outpatient (BNV) | payer MEDICARE, OTHER, SELFPAY | PROVIDERS: Emergency Provider Emergency Medicine Emergency Medical Services; PCP Family Medicine; Visit Provider Internal Medicine | DX: I49.1 Atrial premature depolarization (principal) | CPT/HCPCS: 93010 ==

== ENCOUNTER → 2025-02-12 15:06 | Outpatient (BNV) | payer MEDICARE, OTHER, SELFPAY | PROVIDERS: Emergency Provider Emergency Medicine Emergency Medical Services; PCP Family Medicine; Visit Provider Radiology Diagnostic Radiology | DX: K80.20 Calculus of gallbladder without cholecystitis without obstruction (principal); R91.1 Solitary pulmonary nodule; R53.1 Weakness | CPT/HCPCS: 71045 ==

== ENCOUNTER 2025-02-21 14:57 | Outpatient (AMB) | payer MEDICARE, OTHER, SELFPAY ==
--- NOTE | 2025-02-21 15:04 | HO.NEPHOV ---
Vital Signs 02/21/25 15:20 Height 5 ft 10 in Weight 224 lb 6 oz BMI 32.2 BP 110/50 L Blood Pressure Location Rt brachial Position Sitting Pulse 63 Pulse Source Pulse Oximeter Pulse Oximetry (%) 96 Oxygen Delivery Method Room Air Intake Visit Reasons: Seen at [facility] [place] ARYAN/ Conf Accompanied by: Spouse Allergies No Known Allergies Allergy (Verified 02/21/25 15:11) Medication List - Last Reconciled 02/21/25 by Aman Denney MD alfuzosin ER 10 mg PO DAILY amlodipine 5 mg PO DAILY amlodipine 10 mg PO DAILY aspirin (Adult Aspirin Regimen) 81 mg PO DAILY [id number]-[id number] [id number] mcg (Centrum Minis Men 50 Plus) tabs PO DAILY omega-3 fatty acids-fish oil 360-1,200 mg (Fish Oil) 1 cap PO DAILY omeprazole 20 mg PO DAILY pregabalin 75 mg PO BID rosuvastatin (Crestor) 40 mg PO DAILY valsartan 80 mg PO DAILY vitamin B comp and C no.3 (B Complex Plus Vitamin C) 1 cap PO DAILY HPI Comments Details: 89-year-old gentleman with past medical history of coronary artery disease status post CABG, peripheral artery disease was seen in the ED on 02/12/2025 with fatigue and lethargy. His labs were significant for hemoglobin of 10.0, creatinine 2.97 with GFR of 20. His last known creatinine in the system was 1.42 in 2020. Urinalysis showed 2+ protein with no cells or sediments. Patient had a cocktail constitution party previous night, possibly leading to ARYAN. Repeat labs on 02/19/2025 shows creatinine 2.25 with GFR increasing to 27. He underwent CT abdomen and pelvis which showed multiple cysts in the right kidney, a small left renal stone but no hydronephrosis. [facility] Surgical History (Updated 02/21/25 @ 15:09 by SMA Rehana) History of surgery on lower extremity S/P aneurysm repair S/P triple vessel bypass Family History (Updated 02/21/25 @ 15:10 by SMA Rehana) Father Heart attack Social History Patient Tobacco Use Status: Former Tobacco user Review of Systems Const Details: Const + fatigue, + weakness Eyes Denies blurry vision and Denies change in vision ENT Denies bleeding gums and Denies change in voice Card Denies chest pain and Denies leg ulcers Resp Denies cough and Denies excessive phlegm production GI Denies abdominal pain and Denies bloating Denies hematuria, Denies urinary frequency and Denies difficulty voiding Musc Denies abnormal gait Neuro Denies Neuro-related abnormal movements, Denies abnormal gait and Denies behavioral changes Psych Denies behavioral changes and Denies change in appetite Endo Denies change in body appearance, Denies cold intolerance, Denies excessive sweating and Denies fatigue Physical Exam General: Elderly male Not in any acute distress, comfortable, sitting on the chair Nutritional Appearance: well nourished and overweight Eyes: appearance normal, both eyes and all related structures; Alignment and Position: alignment normal and position normal Neck: No lymphadenopathy, no thyromegaly Resp: bilateral air entry equal, no added sounds present Cardio: Regular rate, regular rhythm; Heart sounds: S1 normal heart sound present and S2 normal heart sound present, no edema GI: soft, nontender, no guarding, no hepatosplenomegaly : bladder normal to inspection, bladder normal to palpation, no renal angle tenderness Skin: no rashes or lesions noted and elasticity normal Neuro: oriented to person, oriented to place, oriented to time and moves all extremities Results Reviewed Nephrology Results: Hgb 10.0 g/dl (14.0-18.0) L 02/12/25 WBC 10.1 X10*3/uL (4.8-10.8) 02/12/25 Plt Count 118 X10*3/uL (160-400) L 02/12/25 Sodium 141 mmol/L (135-145) 02/12/25 Potassium 4.8 mmol/L (3.3-5.1) 02/12/25 Chloride 109 mmol/L (96-108) H 02/12/25 Carbon Dioxide 24 mmol/L (22-29) 02/12/25 BUN 65 mg/dL (9-16) H 02/12/25 Creatinine 2.97 mg/dL (0.5-1.4) H 02/12/25 Calcium 8.4 mg/dL (8.4-10.2) 02/12/25 Urine Protein 100 (2+) mg/dL (Neg-Trace) H 02/12/25 Assessment & Plan Assessment & Plan (1) Chronic kidney disease: Code(s): N18.9 - Chronic kidney disease, unspecified Category: Medical (2) Hypertension: Code(s): I10 - Essential (primary) hypertension Category: Medical (3) Anemia: Code(s): D64.9 - Anemia, unspecified Category: Medical Plan Chronic kidney disease stage IV : Unclear baseline, creatinine 2.97 in the ED decreased to 2.29 after a week. Patient is taking celecoxib 2 pills a day and is also on valsartan which might have contributed to acute kidney injury. Patient is advised to stop celecoxib as well as valsartan given his acute kidney injury. Asked him to take Tylenol if pain and a prescription for gabapentin for pain has been sent. Valsartan has been switch to amlodipine 10 mg daily. We will see him back in a month with repeat labs. - we will get urine protein creatinine ratio on repeat labs. - Urinalysis shows no active sediments, 2+ proteinuria. - CT abdomen ruled out any obstructive uropathy, multiple cysts in the right kidney, small left ureteric stone but no hydronephrosis. - avoid nephrotoxic medications not limited to NSAIDs, contrast etc. - importance of diet, weight loss, adequate blood pressure control, stopped smoking we will explained to patient Hypertension: - target blood pressures less than 130/90 mm Hg - compliance: - on valsartan 80 mg and amlodipine 2.5 mg- switch to amlodipine 10 mg daily. Anemia of chronic kidney disease: - will get iron, TIBC, ferritin levels Mineral bone disease: - will get calcium, phos, vitamin-D and PTH levels Total time spent in the clinic is about 40 minutes, 10 minutes on chart review, review of data, 20 minutes on encounter, physical examination, counseling, answering all the questions, 10 minutes on documentation. Medications: New pregabalin 75 mg PO BEDTIME 30 caps 2RF gabapentin 300 mg PO BEDTIME 30 caps 2RF amlodipine 10 mg PO DAILY 30 tabs 2RF Coding Level of Care Code New Pt Level 4 (78034) Diagnoses Chronic kidney disease N18.9 Hypertension I10 Anemia D64.9
[2025-02-21 15:20] VITALS: BP 110/50; PULSE 63; O2SAT 96; BMI 32.2
--- OUTSIDE RECORDS SUMMARY | 2025-02-21 17:12 | XMS_ITS | Patient Health Record ---
Author Organization Sudarshan coronado M.D., F.A.C.Racheal, F.A.CAdarsh Address [address] [facility] [address] [place] [address] Care Team Providers Care Pleating Machine Operator Name Role Phone Vicky Delgadillo Primary Care [...] Problem Status W/U Status Risk Notes Problem 034771915 Pure hypercholesterolemia (E78.0) 07/01/20 10 Active confirmed Problem 98074089 ABDOMINAL ANEURY SM WITHOUT RUPTURE (I71.4) 07/01/20 10 Active confirmed Problem 54185807 CORONARY ATHEROSCLEROSIS OF [place] CORONARY ARTERY (I25.10) 07/01/20 10 Active confirmed Problem Peripheral vascular disease (936895208) OTHER PERIPHERAL VASCULAR DISEASE (I73.89) 11/13/19 11 Active confirmed Problem History of coronary artery bypass grafting (425488957) S/P CABG (Z95.1) 07/01/20 10 Active confirmed Plan Of Treatment No Information
== END 2025-02-21 15:49 | disposition home or self-care (01) ==
LOC: HO.HKA 14:58
PROVIDERS: PCP Family Medicine; Visit Provider Internal Medicine Critical Care Medicine
DX: I12.9 Hypertensive chronic kidney disease with stage 1 through stage 4 chronic kidney disease, or unspecified chronic kidney disease (principal); N18.9 Chronic kidney disease, unspecified; D64.9 Anemia, unspecified
CPT/HCPCS: 99204

== ENCOUNTER → 2025-02-21 14:57 | Outpatient (BNVA) | payer MEDICARE, OTHER, SELFPAY | PROVIDERS: PCP Family Medicine; Visit Provider Internal Medicine Critical Care Medicine | DX: I12.9 Hypertensive chronic kidney disease with stage 1 through stage 4 chronic kidney disease, or unspecified chronic kidney disease (principal); N18.9 Chronic kidney disease, unspecified; D64.9 Anemia, unspecified | CPT/HCPCS: 99202 ==

== ENCOUNTER 2025-03-22 09:19 | Outpatient (REF) | payer MEDICARE, OTHER, SELFPAY ==
--- OUTSIDE RECORDS SUMMARY | 2025-03-21 23:59 | XMS_ITS | Continuity of Care Document ---
Author Organization [facility] Address [address] [place] [address]- Care Team Providers Care Nephrology Social Worker Name Role Phone Jose Paulino MD Primary Care Physician [phone] Encounter [facility] ACCT R [id number] Date(s): 02/13/25 - 03/21/25 [facility] [address] [place] [address]- Attending Physician: Jose Paulino MD Encounter Type: Pre Office Visit Allergies, Adverse Reactions, Alerts No Known Allergies Immunizations Given and Recorded Vaccine Date Status Refusal Reason influenza virus vaccine, inactivated 06/19/24 Colby rded influenza virus vaccine, inactivated 05/22/23 Colby rded influenza virus vaccine, inactivated 06/03/22 Colby rded influenza virus vaccine, inactivated 05/27/21 Colby rded influenza virus vaccine, inactivated 06/12/20 Colby rded influenza virus vaccine, inactivated 06/06/18 Colby rded influenza virus vaccine, inactivated 06/07/17 Colby rded influenza virus vaccine, inactivated 06/15/16 Colby rded influenza virus vaccine, inactivated 06/14/12 Colby rded influenza virus vaccine, inactivated 05/07/11 Colby rded SARS-CoV-2(COVID-19)mRNA-LNP vac([id number]) 06/19/24 Recorded zoster vaccine, inactivated 01/13/24 Recorded [id number] 12y+ bivalent booster vax 05/22/23 Recorded [id number] 12y+ bivalent booster vax 1 06/26/22 Recorded [id number] 12y+ bivalent booster vax 06/17/22 Recorded Influenza Virus Vaccine (oldterm) 2 06/26/22 Recor ded pneumococcal 20-valent conjugate vaccine 3 02/06/22 Given SARS-CoV-2 (COVID-19) mRNA BNT-162b2 vac 06/09/21 Recorded Pneumococcal Vaccine (oldterm) 4, 5 06/08/05 Given 1Result Comment: [employer] 2Result Comment: [employer] 3Result Comment: [id number] 4Result Comment: lot number [id number] exp 08/21/2006 5Admin Note: record of vaccine given to patient Medications alfuzosin 10 mg oral tablet, extended release 1 tablet = 10 mg, By Mouth, Daily, # 90 tablet, 0 Refills, Maintenance, 02/06/22 10:14:00 AM EDT, ERTablet, Partial fill upon patient request if the prescription is for a schedule II opioid drug. Start Date: 02/06/22 Status: Ordered Quantity: 90.0 Unit: tablet Repeat number: 1 amLODIPine 2.5 mg oral tablet 2.5 mg, 1, tablet, By Mouth, Daily, # 30 tablet, Refills 1, Tot. Refills 1, Maintenance, 02/07/25 7:52:00 AM EDT, Route to Pharmacy Electronically, [id number], Partial fill upon patient request if the prescription is for a schedule II opioid drug., 173.3, cm, 06/09/24 7:42:00 EDT, Height, 102.8, kg, 04/07/23 10:42:00 EDT, Dry Weight Start Date: 02/07/25 Status: Ordered Quantity: 30.0 Unit: tablet Repeat number: 2 Aspirin = 81 mg, 0 Refills, Maintenance, 05/13/10 12:34:35 AM EDT Start Date: 05/13/10 Status: Ordered Repeat number: 1 B 100 Complex By Mouth, Daily, 0 Refills, Maintenance, 03/26/21 10:57:00 AM EDT, Partial fill upon patient requestif the prescription is for a schedule II opioid drug. Start Date: 03/26/21 Status: Ordered Repeat number: 1 celecoxib 100 mg oral capsule 1 capsule, By Mouth, 2 times a day, # 180 capsule, 3 Refills, Maintenance, 06/24/24 4:41:00 AM EDT,[facility], 173.3, cm, 06/09/24 7:42:00 EDT, Height, 102.8, kg, 04/07/23 10:42:00 EDT, Dry Weight Start Date: 06/24/24 Status: Ordered Quantity: 180.0 Unit: capsule Repeat number: 1 Centrum Silver Men's oral tablet 1 tablet, By Mouth, Daily, 0 Refills, Maintenance, 05/13/10 12:35:31 AM EDT Start Date: 05/13/10 Status: Ordered Repeat number: 1 Crestor 40 mg oral tablet 1 tablet, By Mouth, Daily, # 30 tablet, 0 Refills, Maintenance, 03/10/11 10:21:46 AM EDT, Tablet Start Date: 03/10/11 Status: Ordered Quantity: 30.0 Unit: tablet Repeat number: 1 Fish Oil 0 Refills, Maintenance, 05/13/10 12:35:01 AM EDT Start Date: 05/13/10 Status: Ordered Repeat number: 1 hydrochlorothiazide-valsartan 25 mg-160 mg oral tablet 1 tablet, By Mouth, Daily, # 90 tablet, 3 Refills, Maintenance, 02/07/25 10:52:00 AM EDT, Tablet, [id number], Partial fill upon patient request if the prescription is for a schedule II opioid drug., 1 tablet By Mouth Daily, 173.3, cm, 06/09/24 7:42:00 EDT, Height, 102.8, kg, 04/07/23 10:42:00 EDT, Dry Weight Start Date: 02/07/25 Status: Ordered Quantity: 90.0 Unit: tablet Repeat number: 4 omeprazole 20 mg oral enteric coated capsule 1 capsule = 20 mg, By Mouth, Daily, # 90 capsule, 3 Refills, Maintenance, 09/11/22 10:11:00 AM EST,EC Capsule, [facility], Partial fill upon patient request if the prescription is for a schedule II opioid drug., 180.34, cm, 07/17/22 14:49:00 EDT, Height Start Date: 09/11/22 Status: Ordered Quantity: 90.0 Unit: capsule Repeat number: 4 pregabalin 75 mg oral capsule 60 each, 0 Refill(s), TAKE 1 CAPSULE BY MOUTH TWICE DAILY, 0 Refills, 06/01/24 2:17:00 PM EDT, Partial fill upon patient request if the prescription is for a schedule II opioid drug. Start Date: 06/01/24 Status: Ordered Repeat number: 1 Problem List Condition Confirmation Course Effective Dates Status Health St atus Informant AAA - Abdominal aortic aneurysm Confirmed Active Back pain NOS Confirmed Active CABG x 3 - Coronary artery bypass grafts x 3 Confirmed Active CAD - Coronary artery disease Confirmed Active Cellulitis Confirmed Active Claudication Confirmed Active HTN - Hypertension Confirmed Active Obese class I Confirmed Active PVD - Peripheral vascular disease Confirmed Active Social History Social History Type Response Smoking Status Former smoker, quit more than 30 days ago; Use: quit 30 years ago entered on: 02/06/22 Sex Sex Representation Male (finding) Patient Care team information Care Team Personnel Name: Lora TREVIZO, Jose Galvez Position: [facility] Physician - Primary Care Member Role: PCP Address: [address] [place] [address]- Telecom: Name: Daniel Aguirre MD Position: [facility] Cardiology MD Member Role: Lifetime Consulting Physician Address: [address] [place] [address] [facility] [place] [place] [address] Telecom: Care Team Related Persons Name: MAHIN ROBLES Insurance Providers Guarantor name: STEFANO ROBLES Health Plan Information #: 1 Payer: MEDICARE B Payer Identifier: KIRSTEN Member Number: [id number] Group Number: [id number] Subscriber Identifier: [id number] Relationship to Subscriber: self Coverage Type: NA Coverage Verification Date: Telecom: NA Address: NA Health Plan Information #: 2 Payer: [employer] Payer Identifier: KIRSTEN Member Number: [id number] Group Number: [id number] Subscriber Identifier: [id number] Relationship to Subscriber: self Coverage Type: Commercial Indemnity Coverage Verification Date: Telecom: Address:
--- OUTSIDE RECORDS SUMMARY | 2025-03-22 09:46 | XMS_ITS | Patient Health Record ---
[facility] Address [address] [facility] [place] [address] Care Team Providers Care Logging Worker Name Role Phone Adis Mortensen MD Primary Care Provider Vasu BradenFlora Unavailable [phone] Reason For Referral No Information Medications Medication SIG (Take, Route, Frequency, Duration) Notes Start Date End Date Status Diovan Active Aspir-81 Active Omeprazole Active Fish Oil Active Crestor Active Aspirin 81 MG 1 tablet Orally Once a day; Duration: 30 day(s) Active Multivitamins Active Problems Problem Type SNOMED Code ICD Code Onset Dates Problem Status W/U Status Risk Notes Problem Plantar fasciitis (219652463) Plantar Fasciitis (728.71) Active confirmed Problem Bursitis (27650177) Bursitis (727.3) Active confirmed Problem Calcaneal spur (71456327) Calcaneal spur (726.73) Active confirmed Problem Myositis (10158266) Myositis (729.1) Active confirmed Problem Pain in limb (96482056) Pain in Limb (729.5) Active confirmed Plan Of Treatment Pending Test Test Name Order Date X ray : Foot, left 3V 04/18/2012 X ray : Foot, right 3V 04/18/2012 [id number] TENDON SHEATH/LIGAMENT 0 05/30/2012 [id number] 3mg 05/30/2012 Insurance Providers Payer Name Payer Address Payer Phone Subscriber Number Group Number Insured Name Patient Relationship to Insured Coverage Start Date Coverage End Date Medicare National Govt Svcs Inc [address] [facility] [place] [address] [id number] Antione Joe Self - patient is the insured [employer] [facility] [address] [place], [place] [address] [id number] Antione Joe Self - patient is the insured Medical (General) History Medical History History ICD Code back, hip, knee pain heart disease hypertension poor circulation Surgical History Surgery Date(Month/Year) triple bypass 2004 triplle bypass 2009
--- OUTSIDE RECORDS SUMMARY | 2025-03-22 09:46 | XMS_ITS | Patient Health Record ---
Author Organization Sudarshan coronado M.D., F.A.C.Racheal, F.A.CAdarsh Address [address] [facility] [address] [place] [address] Care Team Providers Care Shearer Printed Circuit Boards Name Role Phone Vicky Delgadillo Primary Care Provider Sudarshan Marques Unavailable [phone] Reason For Referral No Information Medications Medication [...] Problem Status W/U Status Risk Notes Problem Pure hypercholesterolemia (751646397) Pure hypercholesterolemia (E78.0) 2009 Active confirmed Problem Abdominal aortic aneurysm without rupture (88480487) ABDOMINAL ANEURYSM WITHOUT RUPTURE (I71.4) 2009 Active confirmed Problem Atherosclerosis of coronary artery (141930331) CORONARY ATHEROSCLEROSIS OF [place] CORONARY ARTERY (I25.10) 2009 Active confirmed Problem Peripheral vascular disease (074729803) OTHER PERIPHERAL VASCULAR DISEASE (I73.89) 2010 Active confirmed Problem History of coronary artery bypass grafting (706293384) S/P CABG (Z95.1) 2009 Active confirmed Plan Of Treatment No Information
--- OUTSIDE RECORDS SUMMARY | 2025-03-22 09:46 | XMS_ITS | Clinical Summary ---
Author Organization [facility] Address [address] [place] [address] Phone Care Team Providers Care Account Associate Name Role Phone Leonila Brooks MD Primary Care Provider [phone] Allergies No known active allergies Medications alfuzosin (UROXATRAL) 10 mg 24 hr tablet TAKE 1 TABLET BY MOUTH EVERY DAY 1 Active aspirin 81 mg EC tablet TAKE 1 TABLET DAILY DIRECTED. 2 Active rosuvastatin (CRESTOR) 40 mg tablet TAKE 1 TABLET BY MOUTH AT BEDTIME 2 Active pregabalin (LYRICA) 75 mg capsule Take 1 capsule (75 mg total) by mouth 2 (two) times a day. 4 Active celecoxib (CeleBREX) 100 mg capsule Take 1 capsule (100 mg total) by mouth 2 (two) times a day. Active FLUoxetine (PROzac) 20 mg capsuleIndication s:Anxiety Take 1 capsule (20 mg total) by mouth 1 (one) time each day. 30 each 1 5 Active amLODIPine (NORVASC) 5 mg tabletIndications :Primary hypertension Take 1 tablet (5 mg total) by mouth 1 (one) time each day. 90 each 2 5 05/13/20 25 Active valsartan-hydroCH LOROthiazide (DIOVAN-HCT) 160-25 mg per tabletIndications :Primary hypertension Take 1 tablet by mouth 1 (one) time each day. 90 each 2 5 05/13/20 25 Active omeprazole (PriLOSEC) [address] capsuleIndication s:Gastroesophagea l reflux disease with esophagitis without hemorrhage TAKE 1 CAPSULE ONCE DAILY; DO NOT CRUSH OR CHEW 90 capsule Active Active Problems Problem Noted Date Diagnosed Date [...] right hip 05/04/2022 Shoulder pain, right 05/04/2022 Surgical History Surgery Date Site/Laterality Comments AAA [...] 64 12/19/2024 8:44 AM EDT Temperature 36.6 C (97.9 F) 12/19/2024 8:44 AM EDT Respiratory Rate 16 12/19/2024 8:44 [...] 8:30 AM EDT Office Visit [facility] [address] [facility] [address] [place] [address] Myra Villalta MD [address] [facility] [address] [place] [address] Health Maintenance Due Date Last Done Comments DTaP,Tdap,and Td Vaccines (1 - Tdap) 1954 Medicare Annual Wellness Visit 03/22/2022 Hypertension/CHF/CAD Annual BMP Blood Test 07/14/2022 07/14/2021, 04/18/2021 Zoster Vaccines (2 of 2) 01/03/2024 11/08/2023 COVID-19 Vaccine ( season) 2024 09/23/2023, 06/26/2022, 12/11/2021, Additional history exists Influenza Vaccine (#1) 2025 , 05/27/2021, 06/12/2020, Additional history exists Depression Screening [...] Procedure Name Priority Date/Time Associated Diagnosis Comments LIPID PANEL Routine 12/13/2024 6:51 AM EDT Hypercholesterolemi a ANNUAL BMP BLOOD TEST Routine 07/14/2021 from Last 3 Months or Most Recently Relevant to Health Maintenance Results * Lipid panel (12/13/2024 6:51 AM EDT) Cholesterol 96 <200 mg/dL LAB CHEMISTRY METHOD 12/13/2024 10:36 AM EDT [facility] Comment: Cholesterol Risk Factors (NCEP 2004 ATP III update) Desirable: <200 mg/dL Borderline Risk: 200-239 mg/dL High Risk: >239 mg/dL Triglycerides 96 0 - 150 mg/dL LAB CHEMISTRY METHOD 12/13/2024 10:36 AM EDT [facility] HDL 44 23 - 92 mg/dL LAB CHEMISTRY METHOD 12/13/2024 10:36 AM EDT [facility] LDL Calculated 33 <100 mg/dL LAB CHEMISTRY METHOD 12/13/2024 10:36 AM EDT [facility] Comment: LDL Cholesterol Risk Factors (NCEP 2004 ATP III update) Desirable for high risk CHD: < 100 mg/dL Desirable for moderate risk CHD (2 or more risk factors): < 130 mg/dL Desirable for low risk CHD (0-1 risk factors): < 160 mg/dL VLDL Cholesterol Kevin 19.2 mg/dL LAB CHEMISTRY METHOD 12/13/2024 10:36 AM EDT [facility] Blood Venous blood specimen / Unknown Venipuncture / Unknown 12/13/2024 6:51 AM EDT 12/13/2024 6:51 AM EDT Leonila Brooks MD LAB BLOOD ORDERABLES Final Re sult [facility] [address] [place] [address], [place] [phone] * Annual BMP Blood Test (07/14/2021) Annual BMP Blood Test ABSTRACTED us Historical Provider HEALTH MAINTENANCE Final Result from Last 3 Months or Most Recently Relevant to Health Maintenance [place] [address] [facility]ARE [facility] Care Teams Account Associate Relationship Specialty Start Date End Date Leonila Brooks MD [address] [place] [address] PCP - General Internal Medicine 08/26/23
[2025-03-22 10:57] LABS: Hematocrit 33.1 % (42.0-52.0); Hemoglobin 10.9 g/dl (14.0-18.0); Mean Corpuscular HGB Conc 32.9 g/dl (31.0-36.0); Mean Corpuscular Hemoglobin 29.1 pg (27.0-33.0); Mean Corpuscular Volume 88.5 fL (80.0-98.0); NRBC Abs Auto 0.000 X10*3/uL (0.0-0.012); NRBC Pct Auto 0.0 /100WBC (0.0-0.2); Platelet Count 150 X10*3/uL (160-400); Red Blood Count 3.74 X10*6/uL (4.60-5.80); White Blood Count 7.9 X10*3/uL (4.8-10.8)
[2025-03-22 11:25] LABS: Anion Gap 10 (12-20); Blood Urea Nitrogen 22 mg/dL (9-16); Calcium 8.8 mg/dL (8.4-10.2); Carbon Dioxide 26 mmol/L (22-29); Chloride 109 mmol/L (96-108); Estimated Glomerular Filt Rate 37; Iron 60 mcg/dL (45-160); Percent Iron Saturation 29 % (15-50); Potassium 4.4 mmol/L (3.3-5.1); Sodium 141 mmol/L (135-145); Total Iron Binding Capacity 210 mcg/dL (228-428); Unsaturated Iron Binding 150 ug/dL
[2025-03-22 11:31] LABS: Parathyroid Hormone Intact 65.9 pg/mL (8.7-77.1)
[2025-03-22 11:39] LABS: Microalbum/Creatinine Ratio Ur 151.0 ug/mg cr (<30); Total Protein Urine Random 69 mg/dL (<12)
[2025-03-23 18:43] LABS: Prot Elec - Albumin 3.7 g/dL (3.8-4.8); Prot Elec - Alpha1 0.3 g/dL (0.2-0.3); Prot Elec - Alpha2 0.8 g/dL (0.5-0.9); Prot Elec - Beta 1 0.4 g/dL (0.4-0.6); Prot Elec - Beta 2 0.4 g/dL (0.2-0.5); Prot Elec - Gamma 1.0 g/dL (0.8-1.7); Prot Elec - Total Protein 6.5 g/dL (6.1-8.1)
[2025-03-27 11:09] LABS: PEU-Protein Creat Ratio Rand 0.411 (0.025-0.148); PEU-Rand. Prot/Creat Ratio 411 mg/g creat (25-148); PEU-Random Ur. Gamma Globulin 10 %; PEU-Random Urine A1 Globulin 12 %; PEU-Random Urine A2 Globulin 10 %; PEU-Random Urine Albumin 54 %; PEU-Random Urine Beta Globulin 14 %; PEU-Random Urine Creatinine 168 mg/dL (20-320); PEU-Random Urine Protein 69 mg/dL (5-25)
[2025-03-29 16:38] LABS: Kappa, Serum 247 mg/dL (176-443); Kappa/Lambda Ratio, Serum 1.98 (1.29-2.55); Lambda, Serum 125 mg/dL (91-240)
== END 2025-03-22 09:20 | disposition home or self-care (01) ==
LOC: HO.10HDL 09:19
PROVIDERS: Visit Provider Internal Medicine Critical Care Medicine
DX: I12.9 Hypertensive chronic kidney disease with stage 1 through stage 4 chronic kidney disease, or unspecified chronic kidney disease (principal); N18.9 Chronic kidney disease, unspecified
CPT/HCPCS: 80048; 82043; 82306; 82570; 83540; 83883; 83970; 84100; 84156; 84165; 84166; 85027

== ENCOUNTER 2025-03-27 09:02 | Outpatient (AMB) | payer MEDICARE, OTHER, SELFPAY ==
--- OUTSIDE RECORDS SUMMARY | 2025-03-27 09:19 | XMS_ITS | Patient Health Record ---
Author Organization [facility] Address [address] [facility] [place] [address] Care Team Providers Care Rubber Tester Name Role Phone Adis Mortensen MD Primary Care Provider Vasu BradenFlora Unavailable [phone] Reason For Referral No Information Medications Medication SIG (Take, Route, Frequency, Duration) Notes Start Date End Date Status Diovan Active Aspir-81 Active Omeprazole Active Fish Oil Active Crestor Active Aspirin 81 MG 1 tablet Orally Once a day; Duration: 30 day(s) Active Multivitamins Active Problems Problem Type SNOMED Code ICD Code Onset Dates Problem Status W/U Status Risk Notes Problem Plantar fasciitis (453876805) Plantar Fasciitis (728.71) Active confirmed Problem Bursitis (51535404) Bursitis (727.3) Active confirmed Problem Calcaneal spur (42483941) Calcaneal spur (726.73) Active confirmed Problem Myositis (85186795) Myositis (729.1) Active confirmed Problem Pain in limb (73118924) Pain in Limb (729.5) Active confirmed Plan Of Treatment Pending Test Test Name Order Date X ray : Foot, left 3V 04/18/2012 X ray : Foot, right 3V 04/18/2012 [id number] TENDON SHEATH/LIGAMENT 0 05/30/2012 [id number] 3mg 05/30/2012 Insurance Providers Payer Name Payer Address Payer Phone Subscriber Number Group Number Insured Name Patient Relationship to Insured Coverage Start Date Coverage End Date Medicare National Govt Svcs Inc [address] [facility] [place] [address] [id number] Antione Joe Self - patient is the insured [employer] [address] [place], [place] [address] [phone] [id number] Antione Joe Self - patient is the insured Medical (General) History Medical History History ICD Code back, hip, knee pain heart disease hypertension poor circulation Surgical History Surgery Date(Month/Year) triple bypass 2004 triplle bypass 2009
--- OUTSIDE RECORDS SUMMARY | 2025-03-27 09:19 | XMS_ITS | Patient Health Record ---
Author Organization Sudarshan coronado M.D., F.A.C.Racheal, F.A.CAdarsh Address [address] [facility] [address] [place] [address] Care Team Providers Care Automatic Operator Name Role Phone Vicky Delgadillo Primary Care Provider Sudarshan Marques Unavailable [phone] Reason For Referral No Information Medications Medication [...] W/U Status Risk Notes Problem Pure hypercholesterolemia (223014128) Pure hypercholesterolemia (E78.0) 2009 Active confirmed Problem Abdominal aortic aneurysm without rupture (81554038) ABDOMINAL ANEURYSM WITHOUT RUPTURE (I71.4) 2009 Active confirmed Problem Atherosclerosis of coronary artery (098172166) CORONARY ATHEROSCLEROSIS OF [place] CORONARY ARTERY (I25.10) 2009 Active confirmed Problem Peripheral vascular disease (613965157) OTHER PERIPHERAL VASCULAR DISEASE (I73.89) 2010 Active confirmed Problem History of coronary artery bypass grafting (509976929) S/P CABG (Z95.1) 2009 Active confirmed Plan Of Treatment No Information
--- OUTSIDE RECORDS SUMMARY | 2025-03-27 09:19 | XMS_ITS | Clinical Summary ---
Author Organization [employer] Address [address] [place] [address] Phone Care Team Providers Care Boring Machine Operator Helper Name Role Phone Leonila Brooks MD Primary Care Provider [phone] Allergies No known active allergies Medications alfuzosin [...] DO NOT CRUSH OR CHEW 90 capsule 03/26/20 25 Active omeprazole (PriLOSEC) [address] capsuleIndicatio ns:Gastroesophag eal reflux disease with esophagitis without hemorrhage TAKE 1 CAPSULE ONCE DAILY; DO NOT CRUSH OR CHEW 90 capsule 12/19/19 25 025 Discontinued Active Problems Problem Noted [...] 8:30 AM EDT Office Visit [facility] [address] [place] [address] Myra Villalta MD [address] [place] [address] Health Maintenance Due Date Last [...] LAB CHEMISTRY METHOD 12/13/2024 10:36 AM EDT [facility] Comment: Cholesterol Risk Factors (NCEP 2004 ATP III update) Desirable: <200 mg/dL Borderline Risk: 200-239 mg/dL High Risk: >239 mg/dL Triglycerides 96 0 - 150 mg/dL LAB CHEMISTRY METHOD 12/13/2024 10:36 AM EDT [facility] HDL 44 23 - 92 mg/dL LAB CHEMISTRY METHOD 12/13/2024 10:36 AM EDT [facility] LDL Calculated 33 <100 mg/dL LAB CHEMISTRY METHOD 12/13/2024 10:36 AM EDT [facility] Comment: LDL Cholesterol Risk Factors (NCEP 2004 ATP III update) Desirable for high risk CHD: < 100 mg/dL Desirable for moderate risk CHD (2 or more risk factors): < 130 mg/dL Desirable for low risk CHD (0-1 risk factors): < 160 mg/dL VLDL Cholesterol Kevin 19.2 mg/dL LAB CHEMISTRY METHOD 12/13/2024 10:36 AM EDT [facility] Blood Venous blood specimen / Unknown Venipuncture / Unknown 12/13/2024 6:51 AM EDT 12/13/2024 6:51 AM EDT Leonila Brooks MD LAB BLOOD ORDERABLES Final Re sult [facility] [address] [place] [address], [place] [phone] * Annual BMP Blood Test (07/14/2021) Annual BMP Blood Test ABSTRACTED us Historical Provider HEALTH MAINTENANCE Final Result from Last 3 Months or Most Recently Relevant to Health Maintenance Insurance MEDICARE [facility] Care Teams Boring Machine Operator Helper Relationship Specialty Start Date End Date Leonila Brooks MD [address] [place] [address] PCP - General Internal Medicine 08/26/23
[2025-03-27 09:30] VITALS: BP 128/52; PULSE 86; O2SAT 97; BMI 31.0
--- NOTE | 2025-03-27 09:30 | HO.NEPHOV ---
Vital Signs 03/27/25 09:30 Height 5 ft 10 in Weight 216 lb BMI 31.0 BP 128/52 L Blood Pressure Location Lt brachial Position Sitting Pulse 86 Pulse Source Pulse Oximeter Pulse Oximetry (%) 97 Oxygen Delivery Method Room Air Intake Visit Reasons: 1 MO FU-Conf Landscape Architecture Teacher Required: No Accompanied by: Self / Same As Patient Allergies No Known Allergies Allergy (Verified 03/27/25 09:33) HPI Comments Details: 89-year-old gentleman with past medical history of coronary artery disease status post CABG, peripheral artery disease was seen in the ED on 02/12/2025 with fatigue and lethargy. His labs were significant for hemoglobin of 10.0, creatinine 2.97 with GFR of 20. His last known creatinine in the system was 1.42 in 2020. Urinalysis showed 2+ protein with no cells or sediments. Patient had a cocktail libertarian previous night, possibly leading to ARYAN. Repeat labs on 02/19/2025 shows creatinine 2.25 with GFR increasing to 27. He was also on NSAID (Celecoxib and valsartan) both of which was discontinued and his creatinine improved to 1.75. He underwent CT abdomen and pelvis which showed multiple cysts in the right kidney, a small left renal stone but no hydronephrosis. [facility] Surgical History History of surgery on lower extremity S/P aneurysm repair S/P triple vessel bypass Family History Father Heart attack Social History Patient Tobacco Use Status: Former Tobacco user Review of Systems Const Details: Const Denies body aches, Denies chills and Denies fatigue Eyes Denies blurry vision and Denies change in vision ENT Denies bleeding gums and Denies change in voice Card Denies chest pain and Denies leg ulcers Resp Denies cough and Denies phlegm GI Denies abdominal pain and Denies bloating Denies hematuria, Denies urinary frequency and Denies difficulty voiding Musc Denies abnormal gait Neuro Denies Neuro-related abnormal movements, Denies abnormal gait Psych Denies behavioral changes and Denies change in appetite Endo Denies change in body appearance, Denies cold intolerance, Denies excessive sweating and Denies fatigue Physical Exam Vital Signs: Last Vital Signs Pulse 86 03/27/25 09:30 BP 128/52 L 03/27/25 09:30 Pulse Ox 97 03/27/25 09:30 Oxygen Delivery Method Room Air 03/27/25 09:30 BMI result Body Mass Index 31.0 General: Elderly gentleman comfortable, not in any distress Nutritional Appearance: well nourished and overweight Eyes: appearance normal, both eyes and all related structure Neck: No lymphadenopathy, no thyromegaly Resp: bilateral air entry equal, no added sounds present Cardio: Regular rate, regular rhythm; Heart sounds: S1 normal heart sound present and S2 normal heart sound present, no edema GI: soft, nontender, no guarding, no hepatosplenomegaly : bladder normal to inspection, bladder normal to palpation, no renal angle tenderness Skin: no rashes or lesions noted and elasticity normal Neuro: oriented to person, oriented to place, oriented to time and moves all extremities Results Reviewed Nephrology Results: Hgb, (14.0-18.0) 10.9 g/dl L 03/22/25 WBC, (4.8-10.8) 7.9 X10*3/uL 03/22/25 Plt Count, (160-400) 150 X10*3/uL L Δ 03/22/25 Sodium, (135-145) 141 mmol/L 03/22/25 Potassium, (3.3-5.1) 4.4 mmol/L 03/22/25 Chloride, (96-108) 109 mmol/L H 03/22/25 Carbon Dioxide, (22-29) 26 mmol/L 03/22/25 BUN, (9-16) 22 mg/dL H 03/22/25 Creatinine, (0.5-1.4) 1.75 mg/dL H 03/22/25 Calcium, (8.4-10.2) 8.8 mg/dL 03/22/25 Phosphorus, (2.7-4.5) 2.5 mg/dL L 03/22/25 PTH Intact, (8.7-77.1) 65.9 pg/mL 03/22/25 Urine Protein, (Neg-Trace) 100 (2+) mg/dL H 02/12/25 Urine Creatinine 186.00 mg/dL 03/22/25 Protein/Creatinin Ratio, (25-148) 411 mg/g creat H 03/22/25 Assessment & Plan Assessment & Plan (1) Hypertension: Code(s): I10 - Essential (primary) hypertension Category: Medical (2) Chronic kidney disease: Code(s): N18.9 - Chronic kidney disease, unspecified Category: Medical (3) Anemia: Code(s): D64.9 - Anemia, unspecified Category: Medical Plan Chronic kidney disease stage IV : Unclear baseline, creatinine 2.97 in the ED decreased to 2.29 after a week. Patient was taking celecoxib 2 pills a day and also valsartan which might have contributed to acute kidney injury. Patient was advised to stop celecoxib as well as valsartan given his acute kidney injury. Valsartan was switched to amlodipine 10 mg daily. We will see him back in a month with repeat labs and will restart valsartan as he has some proteinuria if creatinine is stable or improving. - creatinine better down to 1.75 with GFR 37 - urine protein creatinine ratio around 350, UACR 151mcg/mg - Urinalysis shows no active sediments, 2+ proteinuria. - CT abdomen ruled out any obstructive uropathy, multiple cysts in the right kidney, small left ureteric stone but no hydronephrosis. - avoid nephrotoxic medications not limited to NSAIDs, contrast etc. - importance of diet, weight loss, adequate blood pressure control, stopped smoking we will explained to patient Hypertension: - target blood pressures less than 130/90 mm Hg - compliance: - Valsartan 80 mg was switched to amlodipine 10 mg daily. Anemia of chronic kidney disease: - Hb 10.5, iron profile normal Mineral bone disease: - normal calcium, phos, vitamin-D and PTH levels Orders: Orders Comprehensive Met. Panel 3 Weeks I10 - Essential (primary) hypertension, N18.9 - Chronic kidney disease, unspecified Complete Blood Count Auto Diff 3 Weeks I10 - Essential (primary) hypertension, N18.9 - Chronic kidney disease, unspecified Coding Level of Care Code Est Pt Level 3 (35096) Diagnoses Hypertension I10 Chronic kidney disease N18.9 Anemia D64.9
== END 2025-03-27 10:12 | disposition home or self-care (01) ==
LOC: HO.HKA 09:03
PROVIDERS: PCP Family Medicine; Visit Provider Internal Medicine Critical Care Medicine
DX: I12.9 Hypertensive chronic kidney disease with stage 1 through stage 4 chronic kidney disease, or unspecified chronic kidney disease (principal); N18.9 Chronic kidney disease, unspecified; D64.9 Anemia, unspecified
CPT/HCPCS: 99213

== ENCOUNTER → 2025-03-27 09:02 | Outpatient (BNVA) | payer MEDICARE, OTHER, SELFPAY | PROVIDERS: PCP Family Medicine; Visit Provider Internal Medicine Critical Care Medicine | DX: I12.9 Hypertensive chronic kidney disease with stage 1 through stage 4 chronic kidney disease, or unspecified chronic kidney disease (principal); N18.9 Chronic kidney disease, unspecified; D64.9 Anemia, unspecified | CPT/HCPCS: 99212 ==

== ENCOUNTER 2025-04-12 09:33 | Outpatient (REF) | payer MEDICARE, OTHER, SELFPAY ==
--- OUTSIDE RECORDS SUMMARY | 2025-04-12 09:57 | XMS_ITS | Patient Health Record ---
Author Organization [facility] Address [address] [facility] [place] [address] Care Team Providers Care Wildland Fire Fighter Specialist Name Role Phone Adis Mortensen MD Primary Care Provider Vasu BradenFlora Unavailable [phone] Reason For Referral No Information Medications Medication SIG (Take, Route, Frequency, Duration) Notes Start Date End Date Status Diovan Active Aspir-81 Active Omeprazole Active Fish Oil Active Crestor Active Aspirin 81 MG 1 tablet Orally Once a day; Duration: 30 day(s) Active Multivitamins Active Problems Problem Type SNOMED Code ICD Code Onset Dates Problem Status W/U Status Risk Notes Problem Plantar fasciitis (058629175) Plantar Fasciitis (728.71) Active confirmed Problem Bursitis (56188106) Bursitis (727.3) Active confirmed Problem Calcaneal spur (18745756) Calcaneal spur (726.73) Active confirmed Problem Myositis (66289851) Myositis (729.1) Active confirmed Problem Pain in limb (46097237) Pain in Limb (729.5) Active confirmed Plan Of Treatment Pending Test Test Name Order Date X ray : Foot, left 3V 04/18/2012 X ray : Foot, right 3V 04/18/2012 [id number] TENDON SHEATH/LIGAMENT 0 05/30/2012 [id number] 3mg 05/30/2012 Insurance Providers Payer Name Payer Address Payer Phone Subscriber Number Group Number Insured Name Patient Relationship to Insured Coverage Start Date Coverage End Date Medicare National Govt Sv[employer] [address] [place] [address] [id number] Antione Joe Self - patient is the insured [employer] [facility] [address] [place], [place] [address] [id number] Antione Joe Self - patient is the insured Medical (General) History Medical History History ICD Code back, hip, knee pain heart disease hypertension poor circulation Surgical History Surgery Date(Month/Year) triple bypass 2004 triplle bypass 2009
--- OUTSIDE RECORDS SUMMARY | 2025-04-12 09:57 | XMS_ITS | Patient Health Record ---
Author Organization Sudarshan coronado M.D., F.A.C.Racheal, F.A.CAdarsh Address [address] [place] [address] Care Team Providers Care Tube Coverer Name Role Phone Vicky Delgadillo Primary Care [...] W/U Status Risk Notes Problem Pure hypercholesterolemia (243769210) Pure hypercholesterolemia (E78.0) 2009 Active confirmed Problem Abdominal aortic aneurysm without rupture (62284164) ABDOMINAL ANEURYSM WITHOUT RUPTURE (I71.4) 2009 Active confirmed Problem Atherosclerosis of coronary artery (218894052) CORONARY ATHEROSCLEROSIS OF [place] CORONARY ARTERY (I25.10) 2009 Active confirmed Problem Peripheral vascular disease (015258220) OTHER PERIPHERAL VASCULAR DISEASE (I73.89) 2010 Active confirmed Problem History of coronary artery bypass grafting (406809281) S/P CABG (Z95.1) 2009 Active confirmed Plan Of Treatment No Information
--- OUTSIDE RECORDS SUMMARY | 2025-04-12 09:57 | XMS_ITS | Clinical Summary ---
Author Organization [employer] Address [address] [place] [address] Phone Care Team Providers Care Oceanography Professor Name Role Phone Leonila Brooks MD Primary Care Provider [phone] Allergies No known active allergies Medications alfuzosin [...] 8:30 AM EDT Office Visit [facility] [address] [place] [address] Myra Villalta MD [address] [place] [address] Health Maintenance Due Date Last Done Comments DTaP,Tdap,and Td Vaccines (1 - Tdap) 1954 Medicare Annual Wellness Visit 03/22/2022 Hypertension/CHF/CAD Annual BMP Blood Test 07/14/2022 07/14/2021, 04/18/2021 Zoster Vaccines (2 of 2) 01/03/2024 11/08/2023 COVID-19 Vaccine ( season) 2024 09/23/2023, 06/26/2022, 12/11/2021, Additional history exists Influenza Vaccine (#1) 2025 , 05/27/2021, 06/12/2020, Additional history exists Falls Risk Assessment 12/19/2025 12/19/2024, 025 Social Influencers of Health Screening 12/19/2025 12/19/2024 Cholesterol Screening (Lipid Panel) 12/13/2029 12/13/2024, 06/12/2024, 11/27/2021 Pneumococcal Vaccine: 50+ Years Completed 02/06/2022, 06/08/2005 RSV Immunization Adult Patients Completed 09/01/2023 Depression Screening Completed 12/19/2024 HIB Vaccines Aged Out No longer eligi [...] * Lipid panel (12/13/2024 6:51 AM EDT) [facility] Cholesterol 96 <200 mg/dL LAB CHEMISTRY METHOD 12/13/2024 10:36 AM EDT [facility] Comment: Cholesterol Risk Factors (NCEP 2004 ATP III update) Desirable: <200 mg/dL Borderline Risk: 200-239 mg/dL High Risk: >239 mg/dL Triglycerides 96 0 - 150 mg/dL LAB CHEMISTRY METHOD 12/13/2024 10:36 AM EDT [facility] HDL 44 23 - 92 mg/dL LAB CHEMISTRY METHOD 12/13/2024 10:36 AM EDT [facility] LDL Calculated 33 <100 mg/dL LAB CHEMISTRY METHOD 12/13/2024 10:36 AM EDT [facility] Comment: LDL Cholesterol Risk Factors (NCEP 2004 ATP III update) Desirable for high risk CHD: < 100 mg/dL Desirable for moderate risk CHD (2 or more risk factors): < 130 mg/dL Desirable for low risk CHD (0-1 risk factors): < 160 mg/dL VLDL Cholesterol Kevin 19.2 mg/dL LAB CHEMISTRY METHOD 12/13/2024 10:36 AM EDT [facility] Blood Venous blood specimen / Unknown Venipuncture / Unknown 12/13/2024 6:51 AM EDT 12/13/2024 6:51 AM EDT Leonila Brooks MD LAB BLOOD ORDERABLES Final Re sult [facility] [address] [place] [address], [place] [phone] * Annual BMP Blood Test (07/14/2021) Pathologist [facility] Annual BMP Blood Test ABSTRACTED Historical Provider HEALTH MAINTENANCE Final Result from Last 3 Months or Most Recently Relevant to Health [place] [phone] MEDICARE [facility] Care Teams Oceanography Professor Relationship Specialty Start Date End Date Leonila Brooks MD [address] [place] [address] PCP - General Internal Medicine 08/26/23
--- OUTSIDE RECORDS SUMMARY | 2025-04-12 09:57 | XMS_ITS | Encounter Summary ---
Author Organization [facility] Address [address] [place] [address] Phone Care Team Providers Care Metal Sorter Name Role Phone Jose Paulino MD Primary Care Provider + Encounter Details Date Type Department Care Team (Late Contact Info) Description 01/13/2024 Procedure Pass [facility] [address] [place] [address] Social History Tobacco Use Types Packs/Day Years Used Date Smoking Tobacco: Former Smokeless Tobacco: Never Alcohol Use Standard Drinks/Week Comments Yes 0 (1 standard drink = 0.6 oz pur e alcohol) socially Education Answer Date Recorded Are you interested in more education? Not on xiomy e 01/08/2023 Are you concerned about learning? Not on file 01/08/2023 No 01/08/2023 No 01/08/2023 Digital Access Answer Date Recorded No 02/08/2023 No 02/08/2023 Reliable internet access at home? Not on file 02/08/2023 Device with a working camera? Not on file Sex and Gender Information Value Date Recorded Sex Assigned at Not on file Legal Sex Male 10:14 PM EDT Gender Identity Not on file Sexual Orientation Not on file documented as of this encounter Plan of Treatment Upcoming Encounters Date Type Department Care Team (Late Contact Info) Description 01/31/2025 Procedure Pass [facility] [address] [place] [address] 05/09/2025 8:30 AM EDT Appointment [facility] [address] [place] [address] Brandy Márquez PA-C, MPH [address] [place] [address] [email or web address] 05/23/2025 8:30 AM EDT Office Visit [facility] [address] [facility] [address] Floor, [address] [place] [address] Rossi Martin, ECONOMIC ANALYST [address] [place] [address] 01/30/2026 8:00 AM EDT Office Visit [facility] [address] [facility] [address]rd [facility], [address] [place] [address] Kobe Ndiaye MD [address] [facility], [address] [address] documented as of this encounter Visit Diagnoses Not on filedocumented in this encounter Care Teams Metal Sorter Relationship Specialty Start Date End Date Jose Paulino MD [address] [place] [address] PCP - General Family Medicine 01/25/23 documented as of this encounter Additional Source Comments The information contained in this document represents components of the legal health record. It is not the complete legal health record.[facility]
[2025-04-12 11:14] LABS: MANUAL DIFF FLAG NO
[2025-04-12 11:19] LABS: Hematocrit 33.6 % (42.0-52.0); Hemoglobin 10.9 g/dl (14.0-18.0); Imm Gran Abs Auto 0.01 X10*3/uL (0.00-0.03); Imm Gran Pct Auto 0.2 % (0.0-0.4); Lymphocytes Absolute Auto 1.5 X10*3/uL (1.2-4.9); Mean Corpuscular HGB Conc 32.4 g/dl (31.0-36.0); Mean Corpuscular Hemoglobin 28.7 pg (27.0-33.0); Mean Corpuscular Volume 88.4 fL (80.0-98.0); NRBC Abs Auto 0.000 X10*3/uL (0.0-0.012); NRBC Pct Auto 0.0 /100WBC (0.0-0.2); Platelet Count 175 X10*3/uL (160-400); Red Blood Count 3.80 X10*6/uL (4.60-5.80); White Blood Count 5.8 X10*3/uL (4.8-10.8)
[2025-04-12 11:42] LABS: Alanine Aminotransferase 12 U/L (0-40); Albumin Level 4.0 g/dL (3.5-5.0); Alkaline Phosphatase 68 U/L (39-117); Anion Gap 12 (12-20); Aspartate Amino Transferase 15 U/L (5-37); Blood Urea Nitrogen 22 mg/dL (9-16); Calcium 9.4 mg/dL (8.4-10.2); Carbon Dioxide 26 mmol/L (22-29); Chloride 109 mmol/L (96-108); Estimated Glomerular Filt Rate 37; Potassium 4.1 mmol/L (3.3-5.1); Sodium 143 mmol/L (135-145); Total Protein 6.6 g/dL (6.5-8.0)
== END 2025-04-12 09:34 | disposition home or self-care (01) ==
LOC: HO.10HDL 09:33
PROVIDERS: Visit Provider Internal Medicine Critical Care Medicine
DX: I12.9 Hypertensive chronic kidney disease with stage 1 through stage 4 chronic kidney disease, or unspecified chronic kidney disease (principal); N18.9 Chronic kidney disease, unspecified
CPT/HCPCS: 36415; 80053; 82570; 85025

== ENCOUNTER 2025-04-20 09:56 | Outpatient (AMB) | payer MEDICARE, OTHER, SELFPAY ==
--- OUTSIDE RECORDS SUMMARY | 2025-04-20 09:58 | XMS_ITS | Encounter Summary ---
Author Organization [facility] Address [address] [place] [address] Phone Care Team Providers Care Tailer In Name Role Phone Jose Paulino MD Primary Care Provider + Encounter Details Date Type Department Care Team (Late Contact Info) Description 01/13/2024 Procedure Pass [facility] [address] [place] [address] Social History Tobacco Use Types Packs/Day Years [...] Info) Description 01/31/2025 Procedure Pass [facility] [address] [place] [address] 05/09/2025 8:30 AM EDT Appointment [facility] Lab [address] [place] [address] Brandy Márquez PA-C, MPH [address] [place] [address] [email or web address] 05/23/2025 8:30 AM EDT Office Visit [facility] [address] [facility] [address] Floor, [address] [place] [address] Rossi Martin, INVESTOR [address] [place] [address] 01/30/2026 8:00 AM EDT Office Visit [facility] [address] [facility] [address]rd [facility], [address] [place] [address] Kobe Ndiaye MD 22 [facility], [address] [address] documented as of this encounter Visit Diagnoses Not on filedocumented in this encounter Care Teams Tailer In Relationship Specialty Start Date End Date Jose Paulino MD [address] [place] [address] PCP - General Family Medicine 01/25/23 documented as of this encounter Additional Source Comments The information contained in this document represents components of the legal health record. It is not the complete legal health record.[facility]
--- OUTSIDE RECORDS SUMMARY | 2025-04-20 09:58 | XMS_ITS | Patient Health Record ---
Author Organization Sudarshan coronado M.D., F.A.C.Racheal, F.A.CAdarsh Address [address] [place] [address] Care Team Providers Care Baby Counselor Name Role Phone Vicky Delgadillo Primary Care [...] W/U Status Risk Notes Problem Pure hypercholesterolemia (871539479) Pure hypercholesterolemia (E78.0) 2009 Active confirmed Problem Abdominal aortic aneurysm without rupture (31731847) ABDOMINAL ANEURYSM WITHOUT RUPTURE (I71.4) 2009 Active confirmed Problem Atherosclerosis of coronary artery (072568571) CORONARY ATHEROSCLEROSIS OF [place] CORONARY ARTERY (I25.10) 2009 Active confirmed Problem Peripheral vascular disease (700985722) OTHER PERIPHERAL VASCULAR DISEASE (I73.89) 2010 Active confirmed Problem History of coronary artery bypass grafting (311623008) S/P CABG (Z95.1) 2009 Active confirmed Plan Of Treatment No Information
--- OUTSIDE RECORDS SUMMARY | 2025-04-20 09:58 | XMS_ITS | Clinical Summary ---
Author Organization [employer] Address [address] [place] [address] Phone Care Team Providers Care Brush Cleaner Name Role Phone Leonila Brooks MD Primary Care Provider [phone] Allergies No known active allergies Medications alfuzosin [...] 8:30 AM EDT Office Visit [facility] [address] [facility] [place] [address] Myra Villalta MD [address] [facility] [address] [place] [address] Health Maintenance Due Date Last [...] * Lipid panel (12/13/2024 6:51 AM EDT) [facility] Cholesterol 96 <200 mg/dL LAB CHEMISTRY METHOD 12/13/2024 10:36 AM EDT [facility] Comment: Cholesterol Risk Factors (NCEP 2004 ATP III update) Desirable: <200 mg/dL Borderline Risk: 200-239 mg/dL High Risk: >239 mg/dL Triglycerides 96 0 - 150 mg/dL LAB CHEMISTRY METHOD 12/13/2024 10:36 AM EDT [facility] HDL 44 23 - 92 mg/dL LAB CHEMISTRY METHOD 12/13/2024 10:36 AM EDT [facility] LDL Calculated 33 <100 mg/dL LAB CHEMISTRY METHOD 12/13/2024 10:36 AM EDT [facility] Comment: LDL Cholesterol Risk Factors (NCEP 2004 ATP III update) Desirable for high risk CHD: < 100 mg/dL Desirable for moderate risk CHD (2 or more risk factors): < 130 mg/dL Desirable for low risk CHD (0-1 risk factors): < 160 mg/dL VLDL Cholesterol Kevin 19.2 mg/dL LAB CHEMISTRY METHOD 12/13/2024 10:36 AM EDT [facility] Blood Venous blood specimen / Unknown Venipuncture / Unknown 12/13/2024 6:51 AM EDT 12/13/2024 6:51 AM EDT Leonila Brooks MD LAB BLOOD ORDERABLES Final Re sult [facility] [address] [place] [address], [place] [phone] * Annual BMP Blood Test (07/14/2021) Pathologist [facility] Annual BMP Blood Test ABSTRACTED Historical Provider HEALTH MAINTENANCE Final Result from Last 3 Months or Most Recently Relevant to Health Maintenance [place] [address] MEDICARE [facility] Care Teams Brush Cleaner Relationship Specialty Start Date End Date Leonila Brooks MD [address] [place] [address] PCP - General Internal Medicine 08/26/23
--- OUTSIDE RECORDS SUMMARY | 2025-04-20 09:58 | XMS_ITS | Patient Health Record ---
Author Organization [facility] Address [address] [facility] [place] [address] Care Team Providers Care Supply Chain Planner Name Role Phone Adis Mortensen MD Primary Care Provider Vasu BradenFlora Unavailable [phone] Reason For Referral No Information Medications Medication SIG (Take, Route, Frequency, Duration) Notes Start Date End Date Status Diovan Active Aspir-81 Active Omeprazole Active Fish Oil Active Crestor Active Aspirin 81 MG 1 tablet Orally Once a day; Duration: 30 day(s) Active Multivitamins Active Problems Problem Type SNOMED Code ICD Code Onset Dates Problem Status W/U Status Risk Notes Problem Plantar fasciitis (592293577) Plantar Fasciitis (728.71) Active confirmed Problem Bursitis (20298671) Bursitis (727.3) Active confirmed Problem Calcaneal spur (66508599) Calcaneal spur (726.73) Active confirmed Problem Myositis (38422019) Myositis (729.1) Active confirmed Problem Pain in limb (56341193) Pain in Limb (729.5) Active confirmed Plan Of Treatment Pending Test Test Name Order Date X ray : Foot, left 3V 04/18/2012 X ray : Foot, right 3V 04/18/2012 [id number] TENDON SHEATH/LIGAMENT 0 05/30/2012 [id number] 3mg 05/30/2012 Insurance Providers Payer Name Payer Address Payer Phone Subscriber Number Group Number Insured Name Patient Relationship to Insured Coverage Start Date Coverage End Date Medicare National Govt Svcs Inc [address] [place] [address] [id number] Antione Joe Self - patient is the insured [employer] [facility] [address] [place], [place] [address] [phone] [id number] Antione Joe Self - patient is the insured Medical (General) History Medical History History ICD Code back, hip, knee pain heart disease hypertension poor circulation Surgical History Surgery Date(Month/Year) triple bypass 2004 triplle bypass 2009
--- NOTE | 2025-04-20 10:01 | HO.NEPHOV_ITS ---
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 Required: No Accompanied by: Self / Same As Patient Allergies No Known Allergies Allergy (Verified 04/20/25 10:02) Medication List - Last Reconciled 04/20/25 by Aman Denney MD alfuzosin ER 10 mg PO DAILY amlodipine 5 mg PO DAILY aspirin (Adult Aspirin Regimen) 81 mg PO DAILY gabapentin 300 mg PO BEDTIME [id number] mcg (Centrum Minis Men 50 Plus) tabs PO DAILY omega-3 fatty acids-fish oil 360-1,200 mg (Fish Oil) 1 cap PO DAILY omeprazole 20 mg PO DAILY pregabalin 75 mg PO BEDTIME pregabalin 75 mg PO BID rosuvastatin (Crestor) 40 mg PO DAILY valsartan 80 mg PO DAILY valsartan 160 mg PO DAILY vitamin B comp and C no.3 (B Complex Plus Vitamin C) 1 cap PO DAILY HPI Comments Details: 89-year-old gentleman with past medical history of coronary artery disease status post CABG, peripheral artery disease was seen in the ED on 02/12/2025 with fatigue and lethargy. His labs were significant for hemoglobin of 10.0, creatinine 2.97 with GFR of 20. His last known creatinine in the system was 1.42 in 2020. Urinalysis showed 2+ protein with no cells or sediments. Patient had a cocktail libertarian previous night, possibly leading to ARYAN. Repeat labs on 02/19/2025 shows creatinine 2.25 with GFR increasing to 27. He was also on NSAID (Celecoxib and valsartan) both of which was discontinued and his creatinine improved to 1.75. He is here for followup appointment today. 04/20/2025: No new complaints, doing well. Will be moving to [place] next month. He underwent CT abdomen and pelvis which showed multiple cysts in the right kidney, a small left renal stone but no hydronephrosis. [facility] Surgical History History of surgery on lower extremity S/P aneurysm repair S/P triple vessel bypass Family History Father Heart attack Social History Patient Tobacco Use Status: Former Tobacco user Review of Systems Const Details: Const : no body aches, no chills, no excessive sweating and no fatigue Eyes: no blurry vision and no change in vision ENT: no bleeding gums and no change in voice, no dizziness Card: no chest pain, no shortness of breath, no orthopnea, no PND Resp: no cough, no excessive phlegm production, no SOB GI: no abdominal pain and no nausea, no vomiting : no hematuria, no urinary frequency and no difficulty voiding Musc: no abnormal gait, no bone pain Neuro: no abnormal movements, no weakness, no dizziness, no abnormal gait and no behavioral changes Psych: no behavioral changes and no change in appetite Endo: no change in body appearance, no cold intolerance, no excessive sweating and no fatigue Physical Exam Vital Signs: Last Vital Signs Pulse 63 04/20/25 10:02 BP 124/50 L 04/20/25 10:02 Pulse Ox 96 04/20/25 10:02 Oxygen Delivery Method Room Air 04/20/25 10:02 BMI result Body Mass Index 30.5 General: Elderly gentleman not in any acute distress, comfortable Nutritional Appearance: well nourished and weight Eyes: normal position, no icterus Neck: No lymphadenopathy, no thyromegaly Resp: bilateral air entry equal, no added sounds present Cardio: normal S1, S2 heard, no murmur heard, no edema GI: soft, nontender, no guarding, no hepatosplenomegaly : bladder normal to inspection, bladder normal to palpation, no renal angle tenderness Skin: no rashes or lesions noted and elasticity normal Neuro: oriented to person, oriented to place, oriented to time and moves all extremities Results Reviewed Nephrology Results: Hgb, (14.0-18.0) 10.9 g/dl L 04/12/25 WBC, (4.8-10.8) 5.8 X10*3/uL 04/12/25 Plt Count, (160-400) 175 X10*3/uL 04/12/25 Sodium, (135-145) 143 mmol/L 04/12/25 Potassium, (3.3-5.1) 4.1 mmol/L 04/12/25 Chloride, (96-108) 109 mmol/L H 04/12/25 Carbon Dioxide, (22-29) 26 mmol/L 04/12/25 BUN, (9-16) 22 mg/dL H 04/12/25 Creatinine, (0.5-1.4) 1.76 mg/dL H 04/12/25 Calcium, (8.4-10.2) 9.4 mg/dL Δ 04/12/25 Phosphorus, (2.7-4.5) 2.5 mg/dL L 03/22/25 PTH Intact, (8.7-77.1) 65.9 pg/mL 03/22/25 Urine Protein, (Neg-Trace) 100 (2+) mg/dL H 02/12/25 Urine Creatinine 183.68 mg/dL 04/12/25 Protein/Creatinin Ratio, (25-148) 411 mg/g creat H Assessment & Plan Assessment & Plan (1) Hypertension: Code(s): I10 - Essential (primary) hypertension Category: Medical (2) Chronic kidney disease: Code(s): N18.9 - Chronic kidney disease, unspecified Category: Medical (3) Anemia: Code(s): D64.9 - Anemia, unspecified Category: Medical Plan Chronic kidney disease stage IIIbA2: possibly secondary to atherosclerotic vascular disease - baseline creatinine around 1.76 and GFR 37. - urine protein creatinine ratio around 350, UACR 151mcg/mg - Urinalysis shows no active sediments, 2+ proteinuria. - since his creatinine is stablized we will switch his amlodipine back to valsartan - Patient was taking celecoxib 2 pills a day and also valsartan which might have contributed to acute kidney injury. Patient was advised to stop celecoxib as well as valsartan given his acute kidney injury. Valsartan was switched to amlodipine 10 mg daily. - CT abdomen ruled out any obstructive uropathy, multiple cysts in the right k idney, small left ureteric stone but no hydronephrosis. - avoid nephrotoxic medications not limited to NSAIDs, contrast etc. - importance of diet, weight loss, adequate blood pressure control, stopped smoking we will explained to patient - normal SPEP, UPEP, serum free light chain. Will get HIV, hepatitis panel, ZINA, ANCA with next set of labs Hypertension: - target blood pressures less than 130/90 mm Hg - compliance: - Valsartan 80 mg was switched to amlodipine 10 mg daily. Anemia of chronic kidney disease: - Hb 10.5, iron profile normal - wrote a letter to him requesting for a colonoscopy. Mineral bone disease: - normal calcium, phos, vitamin-D and PTH levels We will see him back when he comes back from [place] next summer Medications: New valsartan 160 mg PO DAILY 30 tabs 8RF Coding Level of Care Code Est Pt Level 4 (96178) Diagnoses Hypertension I10 Chronic kidney disease N18.9 Anemia D64.9
[2025-04-20 10:02] VITALS: BP 124/50; PULSE 63; O2SAT 96; BMI 30.5
== END 2025-04-20 10:42 | disposition home or self-care (01) ==
LOC: HO.HKA 09:56
PROVIDERS: PCP Family Medicine; Visit Provider Internal Medicine Critical Care Medicine
DX: I12.9 Hypertensive chronic kidney disease with stage 1 through stage 4 chronic kidney disease, or unspecified chronic kidney disease (principal); N18.9 Chronic kidney disease, unspecified; D64.9 Anemia, unspecified
CPT/HCPCS: 99214

== ENCOUNTER → 2025-04-20 09:56 | Outpatient (BNVA) | payer MEDICARE, OTHER, SELFPAY | PROVIDERS: PCP Family Medicine; Visit Provider Internal Medicine Critical Care Medicine | DX: I12.9 Hypertensive chronic kidney disease with stage 1 through stage 4 chronic kidney disease, or unspecified chronic kidney disease (principal); N18.32 Chronic kidney disease, stage 3b; D63.1 Anemia in chronic kidney disease | CPT/HCPCS: 99212 ==

== ENCOUNTER 2025-05-11 13:58 | Outpatient (REF) | payer MEDICARE, OTHER, SELFPAY ==
--- OUTSIDE RECORDS SUMMARY | 2025-05-09 07:52 | XMS_ITS | Encounter Summary ---
Author Organization [facility] Address [address] [place] [address] Phone Care Team Providers Care Cook Railroad Name Role Phone Jose Paulino MD Primary Care Provider + Reason for Referral * Outpatient Procedure - New Request Specialty Diagnoses / Procedures Referred By Yari grullon Referred To Contact Diagnoses Secondary hypertension Procedures Adult Echo TTE Brandy Márquez PA-C, MPH [address] [place] [address] Phone: tel: fax: mailto:[email or web address] Referral ID Status Reason Start Date Expiration Date V isits Requested Visits Authorized [id number] New Request 01/31/2025 1 1 Reason for Visit * Outpatient Procedure - New Request Specialty Diagnoses / Procedures Referred By Yari grullon Referred To Contact Diagnoses Secondary hypertension Procedures Adult Echo TTE Brandy Márquez PA-C, MPH [address] [place] [address] Phone: tel: fax: mailto:[email or web address] Referral ID Status Reason Start Date Expiration Date V isits Requested Visits Authorized [id number] New Request 01/31/2025 1 1 Encounter Details Date Type Department Care Team (Latest Contact Info) Description 05/09/2025 7:52 AM EDT - 05/09/2025 11:59 PM EDT Hospital Encounter Echo [facility] [place] [address] [place] [address] Brandy Márquez PA-C, MPH [address] [place] [address] [email or web address] [email or web address] Discharge Disposition: Home or Self Care Social History Tobacco Use Types Packs/Day Years [...] on file documented as of this encounter Medications at Time of Discharge alfuzosin (UROXATRAL) 10 mg 24 hr tablet Take 10 mg by mouth daily. amLODIPine (NORVASC) 2.5 MG tablet Take 1 tablet (2.5 mg total) by mouth daily. 90 tablet 3 05/31/2024 aspirin 81 MG EC tablet Take 81 mg by mouth daily. celecoxib (CELEBREX) 100 MG capsule Take 100 mg by mouth daily. 02/13/2022 DOCOSAHEXANOIC ACID/EPA (FISH OIL ORAL) FOLIC ACID/MULTIVIT-MIN /LUTEIN (CENTRUM SILVER ORAL) omeprazole (PRILOSEC) 20 MG capsule Take 1 capsule by mouth daily. pregabalin (LYRICA) 75 MG capsule 75 mg 2 (two) times a day. rosuvastatin (CRESTOR) 40 MG tabletIndications :Medication refill TAKE 1 TABLET ONCE DAILY 90 tablet 3 09/28/2024 valsartan-hydroCH LOROthiazide (DIOVAN-HCT) 160-25 mg per tablet Take 1 tablet by mouth daily. zolpidem (AMBIEN) 10 mg tablet Take 10 mg by mouth as needed. 05/22/2023 documented as of this encounter Plan of Treatment Upcoming Encounters Date Type Department Care Team (Late st Contact Info) Description 05/23/2025 8:30 AM EDT Office Visit [facility] [place] [facility] [address], [address] [place] [address] Rossi Martin, DEVELOPMENT EXPERT [address] [place] [address] [email or web address] 01/30/2026 8:00 AM EDT Office Visit [place] [facility] [address], [address] [place] [address] Kobe Ndiaye MD [address] [facility], [address] [place] [address] documented as of this encounter Procedures Procedure Name Priority Date/Time Associated Diagnosis Comments TTE COMPREHENSIVE Routine 05/09/2025 9: 19 AM EDT Secondary hypertension documented in this encounter Results * TTE COMPREHENSIVE (05/09/2025 9:19 AM EDT) Height 178 cm Weight 100 kg Interventricular Septum Thickness 12 6 - 11 mm Left Ventricle Internal Diameter End Diastole 47 42 - 58 mm Left Ventricle Internal Diameter End Systole 25 <40 mm Left Ventricular Outflow Tract Diameter 22.0 mm Left Ventricular Posterior Wall Thickness 12 6 - 11 mm Left Ventricle Ea Lateral Wave Speed 10.3 cm/s Left Ventricle Ea Septal Wave Speed 6.2 cm/s Ejection Fraction 85 50 - 75 Percent Left Atrium Dimension Anterior-Posterior 46 15 - 40 mm Aortic Valve Mean Gradient 6 mmHg Aortic Valve Time Velocity Integral 410.0 mm Aortic Valve Peak Velocity 1.6 m/s Aortic Valve Peak Gradient 10 mmHg Aortic Arch Diameter 28 mm Aortic Sinus Diameter 38 <40 mm Ascending Aorta Diameter 37 <36 mm Mitral Valve Deceleration Time 259 ms Left Ventricle A Wave Speed 58.1 cm/s Left Ventricle E Wave Speed 117.0 cm/s Mitral Valve Mean Gradient 2 mmHg Mitral Valve Peak Gradient 7 mmHg Mitral Valve Area Continuity Equation 2.00 cm2 Pulmonary Valve Peak Velocity 1.1 m/s Pulmonary Valve Peak Gradient 5 mmHg Right Ventricle Basal Diameter 43 25 - 41 mm Tricuspid Valve Peak Velocity 2.5 m/s Raw LV EF% 72 % MV E/E' Tissue Velocity Lateral 11.36 Relative Wall Thickness 0.51 0.22 - 0.42 MV E/A ratio 2.0 MV E/e' septal 18.87 Left Ventricle E/e' Average 15.1 Aortic Valve Prosthetic Peak Gradient 10 mmHg Aortic Valve Prosthetic Mean Gradient 6 mmHg Aorta Sinus Index by Height 2.13 cm/m Aorta Sinus CSA index by Height 6.37 cm2/m Asc Aorta CSA Index by Height 6.04 cm2/m Mitral Valve Prosthetic Peak Gradient 7 mmHg Mitral Valve Prosthetic Mean Gradient 2 mmHg Right Ventricle to Right Atrium Pressure Gradient 25 mmHg Right Ventricle Peak Systolic Pressure (Assuming RAP 10) 35 mmHg MGB CV ECHO TV RVSP (ASSUMING RAP OF 5) 30 mmHg RVSP (Exclusive of RAP) 25 mmHg Pulmonic Valve Prosthetic Peak Gradient 5 mmHg Echo E/Ea 18.87 Body Surface Area 2.17 m2 Left Atrial Volume Index 40 16 - 34 mL/m2 Left Ventricle indexed to BSA 97.7 g/m2 Left Ventricular Outflow Tract Velocity 1.0 m/s Left Atrial Volume 87 mL Left Atrial Volume Index by Height 49 mL/m Right Atrium Area 25 cm2 Right Atrium Area index 12 cm2/m2 LVOT VTI REST 26.0 cm Aortic Valve Sinus Index by BSA 18 mm/m2 Ascending Aorta Index 17 mm/m2 MGB CV AV DIMENSIONLESS INDEX (PEAK) - STRESS ECHO DOBUT - REST 0.63 Ascending Aorta Index 17 mm Aortic Sinus Index 18 mm Ascending Aorta Diameter 17 mm Aortic Valve Sinus Index 1 18 20 - 32 mm AO ASC DIAM BSA INDEX 17.05 Anatomical Region Laterality Modality Heart Ultrasound Narrative 05/10/2025 1:36 PM EDT Images from the original result were not included. Mild LVH with normal LV systolic function EF 55 to 60%. Normal PA pressure estimation estimated at 29 mmHg. Borderline RV dilation but normal RV function. Mild left atrial lodgment. Elevated E/E prime ratio which may suggest elevated left atrial pressure. Trace aortic insufficiency. Trace mitral regurgitation. Compared to study from February 2024, no real significant changes. Left Ventricle The left ventricle is normal in size. There is mild concentric hypertrophy. There is normal left ventricular systolic function. The LV ejection fraction is 55-60% (visually estimated). LV diastolic function parameters are indeterminate in total. Right Ventricle The right ventricle is mildly dilated. There is normal right ventricular systolic function. Left Atrium The left atrium is mildly dilated. Right Atrium The right atrium is moderately dilated. The IVC is suboptimally visualized (RA pressure not estimated). Mitral Valve The mitral valve appears normal. There is mitral annular calcification. There is no mitral stenosis. There is trace mitral regurgitation. Tricuspid Valve The tricuspid valve appears normal. There is no tricuspid stenosis. There is trace tricuspid regurgitation. Aortic Valve The aortic valve is tricuspid. There is leaflet calcification. There is no aortic stenosis. The aortic valve peak velocity is 1.6 m/s. The peak and mean aortic valve gradients are 10 mmHg and 6 mmHg respectively. There is trace aortic regurgitation. The visualized portions of the thoracic aorta appear normal in size. Pulmonic Valve The pulmonic valve appears normal. There is no pulmonic stenosis. There is trace pulmonic regurgitation. Pericardium There is no pericardial effusion. General Findings The study was technically difficult (4). Study quality explanation: body habitus and no subcostal views. Technique(s) used in the evaluation: Multiplane, Color flow Doppler, Spectral Doppler and Epiaortic scan. Comparison Findings Compared to prior TTE report on 02/14/2024, IAS/IVS The interatrial septum is suboptimally visualized. The interatrial septum appears normal. There is no evidence of patent foramen ovale (PFO). The interventricular septum appears normal. Brandy Márquez PA-C, MPH CV ECHO ORDERABLES Final Result documented in this encounter Visit Diagnoses Diagnosis Secondary hypertension Other secondary hypertension, unspecified documented in this encounter Care Teams Cook Railroad Relationship Specialty Start Date End Date Jose Paulino MD [address] [place] [address] PCP - General Family Medicine 01/25/23 documented as of this encounter Additional Source Comments The information contained in this document represents components of the legal health record. It is not the complete legal health record.[facility]
--- OUTSIDE RECORDS SUMMARY | 2025-05-11 14:01 | XMS_ITS | Encounter Summary ---
Author Organization [facility] Address [address] [facility] [address] [place] [address] Phone Care Team Providers Care Director Of Assessment Name Role Phone Jose Paulino MD Primary Care Provider + Encounter Details Date Type Department Care Team (Late Contact Info) Description 01/31/2025 Procedure Pass Echo Lab [facility] [address] [place] [address] Social History Tobacco Use Types Packs/Day Years [...] Description 05/23/2025 8:30 AM EDT Office Visit [facility] [address], [address] [place], [place] [phone] Rossi Martin, SCHOOL OCCUPATIONAL THERAPIST [address] [place] [address] 01/30/2026 8:00 AM EDT Office Visit [facility] [address] [place] [address] [address]rd Floor, [address] [place], [place] [phone] Kobe Ndiaye MD [address] [facility], [address] [place] [address] [email or web address] documented as of this encounter Visit Diagnoses Not on filedocumented in this encounter Care Teams Director Of Assessment Relationship Specialty Start Date End Date Jose Paulino MD [address] [place] [address] PCP - General Family Medicine 01/25/23 documented as of this encounter Additional Source Comments The information contained in this document represents components of the legal health record. It is not the complete legal health record.[facility]
--- OUTSIDE RECORDS SUMMARY | 2025-05-11 14:01 | XMS_ITS | Patient Health Record ---
Author Organization [facility] Address [address] [place] [address] Care Team Providers Care Glass Presser Name Role Phone Jose Paulino Primary Care Provider Melo Crum Unavailable [phone] Allergies No Known Allergies Reason For Referral No Information Medications Medication SIG (Take, Route, Frequency, Duration) Notes Start Date End Date Status Fish Oil 1000 MG 1 capsule Orally Thr ee times a day for 30 day(s) 05/11/2025 Active Rosuvastatin Calcium 40 MG 1 tablet Oral ly Once a day for 30 day(s) 05/11/2025 Active Alfuzosin HCl ER 10 MG 1 tablet immediat nat after the same meal Orally Once a day for 30 day(s) 05/11/2025 Active Vitamin B Complex - as directed Orally 05/11/2025 Active Centrum Adults - as directed Orally 05/11/2025 Active Aspirin 81 81 MG 1 tablet Orally Once a day for 30 day(s) 05/11/2025 Active Omeprazole 20 MG 1 capsule 1/2 to 1 h our before morning meal Orally Once a day for 30 day(s) 05/11/2025 Active Immunizations Vaccine Route Administration Date Status Comme nts Influenza Unknown 06/27/2024 Administered Social History Tobacco Use: Social History Observation Description Date Details (start date - stop date) Former Smoker NA - NA Tobacco Control (Standard) Question Answer Notes Tobacco use: Former smoker AUDIT-C (Standard) Question Answer Notes Did you have a drink contain ing alcohol in the past year? Yes How often did you have a dri nk containing alcohol in the past year? Daily or almost daily (4 points) How many drinks did you have on a typical day when you were drinking in the past year? 1 or 2 drinks (0 point) How often did you have six o r more drinks on one occasion in the past year? Never (0 point) Points 4 Interpretation Positive Section Notes: Nonsmoker; no sig alcohol Problems Problem Type SNOMED Code ICD Code Onset Dates Problem Status W/U Status Risk Notes Problem Anemia (984531202) Anemia (D64.9) Active confirmed Vital Signs Temperature 98.6 degrees Fahrenheit 05/11/2025 Blood pressure diastolic 01 mm Hg 05/11/2025 Height 70 in 05/11/2025 Blood pressure systolic 001 mm Hg 05/11/2025 Weight 210.2 lbs 05/11/2025 BMI 30.16 kg/m2 05/11/2025 Encounters Encounter Location Date Provider Diagnosis [facility] [address] [place] [address] 05/11/2025 Melo Cordero Anemia D64.9 Assessments Encounter Date Diagnosis (ICD Code) Assessment Notes Treatment Notes Treatment Clinical Notes Section Notes 05/11/2025 Anemia (ICD-10 - D64.9) Based on the labs we can then let you know if you need a colonoscopy and upper endoscopy Plan Of Treatment Pending Test Test Name Order Date IRON + IBC (FE) 05/11/2025 CBC w DIFF 05/11/2025 Ferritin 05/11/2025 Vitamin B12 and Folate 05/11/2025 Insurance Providers Payer Name Payer Address Payer Phone Subscriber Number Group Number Insured Name Patient Relationship to Insured Coverage Start Date Coverage End Date MEDICARE OF [place] [address] [place] [address] [phone] [id number] STEFANO ROBLES Self - patient is the insured 1 [id number] ([employer]) [address] [place] [address] [id number] STEFANO ROBLES Self - patient is the insured Medical (General) History Medical History History ICD Code Renal insufficiency HTN Denies [place],DM,CVA,Lung disease, GERD Anemia CAD and PVD with surgeries as below Hyperlipidemia Surgical History Surgery Date(Month/Year) Appy RLE stent AAA with IR stenting 3 V CABG 15 years ago
--- OUTSIDE RECORDS SUMMARY | 2025-05-11 14:01 | XMS_ITS | Encounter Summary ---
Author Organization [facility] Address [address] [facility] [address] [place] [address] Phone Care Team Providers Care Curtain Stretcher Name Role Phone Jose Paulino MD Primary Care Provider + Encounter Details Date Type Department Care Team (Late Contact Info) Description 01/13/2024 Procedure Pass Echo Lab [facility] [place] [address] Social History Tobacco Use Types Packs/Day Years [...] Description 05/23/2025 8:30 AM EDT Office Visit [facility] [address], [address] [place], [place] [phone] Rossi Martin, BIG DATA DEVELOPER [address] [place] [address] 01/30/2026 8:00 AM EDT Office Visit [facility] [address] [place] [address] [address]rd Floor, [address] [place], [place] [phone] Kobe Ndiaye MD [address] [facility], [address] [place] [address] [email or web address] documented as of this encounter Visit Diagnoses Not on filedocumented in this encounter Care Teams Curtain Stretcher Relationship Specialty Start Date End Date Jose Paulino MD [address] [place] [address] PCP - General Family Medicine 01/25/23 documented as of this encounter Additional Source Comments The information contained in this document represents components of the legal health record. It is not the complete legal health record.[facility]
--- OUTSIDE RECORDS SUMMARY | 2025-05-11 14:01 | XMS_ITS | Clinical Summary ---
Author Organization [facility] Address [address] [place] [phone] Phone Care Team Providers Care Profile Mill Operator Tape Control Name Role Phone Jose Paulino MD Primary Care Provider + Allergies No known active allergies Medications DOCOSAHEXANOIC ACID/EPA (FISH OIL ORAL) Active omeprazole (PRILOSEC) 20 MG capsule Take 1 capsule by mouth daily. Active aspirin 81 MG EC tablet Take 81 mg by mouth daily. Active FOLIC ACID/MULTIVIT-M IN/LUTEIN (CENTRUM SILVER ORAL) Active alfuzosin (UROXATRAL) 10 mg 24 hr tablet Take 10 mg by mouth daily. Active celecoxib (CELEBREX) 100 MG capsule Take 100 mg by mouth daily. 2 Active zolpidem (AMBIEN) 10 mg tablet Take 10 mg by mouth as needed. 3 Active amLODIPine (NORVASC) 2.5 MG tablet Take 1 tablet (2.5 mg total) by mouth daily. 90 tablet 3 4 Active Additional Information Patient not taking.Reported on 01/31/2025 rosuvastatin (CRESTOR) 40 MG tabletIndicatio ns:Medication refill TAKE 1 TABLET ONCE DAILY 90 tablet 3 5 Active Additional Information Patient not taking.Reported on 01/31/2025 pregabalin (LYRICA) 75 MG capsule 75 mg 2 (two) times a day. Active valsartan-hydro CHLOROthiazide (DIOVAN-HCT) 160-25 mg per tablet Take 1 tablet by mouth daily. Active Active Problems Problem Noted Date Diagnosed Date Leg swelling 01/13/2024 Assessment & Plan (01/13/2024 8:45 AM EDT): First noticed after increasing losartan to 100 mg daily. We are decreasing this medication as outlined above. He does have a low-normal EF on his stress test a year ago. No echocardiogram on file. He does not have any other symptoms open concerning for CHF however given his history of CAD and revascularization I think it would be reasonable to get an echocardiogram. 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 Nuclear stress test a year ago without signs of ischemia Assessment & Plan (06/18/2020 9:15 AM EDT): Doing well. He knows he will see you 1 of my colleagues on his return due to my pending alf. Assessment & Plan (01/17/2020 8:32 AM EDT): Continuing to do well. No changes and encouraged to remain as active as he can be. Assessment & Plan (06/12/2019 8:05 AM EDT): Asymptomatic at a fairly high level of physical activity. Assessment & Plan (02/28/2019 3:13 PM EDT): Continuing to do well. Will need ECG at next appointment. Assessment & Plan (05/25/2018 8:20 AM EDT): Doing well. No symptoms. He is going to be traveling to [place] in a month and will return in January. Assessment & Plan (01/12/2018 8:22 AM EDT): Continuing to do well without cardiac symptoms. Essential hypertension 01/11/2018 Assessment & Plan (01/13/2024 8:43 AM EDT): I am decreasing his losartan dose back to 50 mg daily due to some leg swelling that he noticed developing after he was increased to 100 mg daily. Apparently this is a known but uncommon adverse effect of losartan. I will also start him on hydrochlorothiazide. Blood pressure in office today 130/62 Decrease losartan to 50 mg daily Start hydrochlorothiazide 25 mg daily Keep blood pressure log for 2 weeks with in office blood pressure check with an MA in 1 month's time Metabolic panel today and again in a month Can follow-up with primary showroom executive director Dr. Ndiaye in 6 months time prior to going back down to [place] Assessment & Plan (06/18/2020 9:15 AM EDT): Controlled on present therapy. No changes. Assessment & Plan (01/17/2020 8:32 AM EDT): Controlled on present therapy. No changes. Assessment & Plan (06/12/2019 8:05 AM EDT): Controlled on present therapy. No changes. Assessment & Plan (02/28/2019 3:13 PM EDT): Controlled on present therapy. No changes. Assessment & Plan (05/25/2018 8:21 AM EDT): Controlled on present therapy. Assessment & Plan (01/12/2018 8:23 AM EDT): Controlled on present therapy. No medication changes. Pure hypercholesterolemia 01/11/2018 Assessment & Plan (06/18/2020 9:16 AM EDT): LDL in the 30s with an HDL in the 40s and triglycerides 163. Hepatic and renal function are fine. Assessment & Plan (01/17/2020 8:33 AM EDT): Excellent profile with LDL and HDL in the 40s and triglycerides at 112. Creatinine 1.3 which is unchanged. LFTs are normal. Assessment & Plan (06/12/2019 8:06 AM EDT): Excellent profile with an LDL in the 40s HDL in the 40s and triglycerides of 124. Creatinine is 1.3 with a BUN of 16 and a potassium of 4.8. LFTs are normal. Assessment & Plan (02/28/2019 3:14 PM EDT): Good profile with an LDL and HDL both in the high 40s. Creatinine is 1.2 with a BUN of 18 and a potassium of 4.7. LFTs were normal. Assessment & Plan (05/25/2018 8:21 AM EDT): Recent profile is excellent with an LDL of 42 and an HDL of 39. Triglycerides are 131. Creatinine is 1.1 and LFTs are normal. Assessment & Plan (01/12/2018 8:22 AM EDT): Tolerating high-dose statins with an LDL of 66. PVD (peripheral vascular disease) 01/11/2018 Overview (01/11/2018): 2010 STAPLE CUTTER ENDARTERECTOMY SFA HADRO 2016 STAPLE CUTTER ILIAC STENT HADROI Assessment & Plan (06/18/2020 9:15 AM EDT): Last follow-up at vascular was in March with patent grafts to his legs. He follows up yearly. Assessment & Plan (01/17/2020 8:33 AM EDT): Follows up with vascular surgery once a year. Asymptomatic and trace pulses remain palpable bilaterally. Assessment & Plan (06/12/2019 8:06 AM EDT): She is to vascular surgeons on a yearly basis. No significant findings at last visit in early March. Assessment & Plan (05/25/2018 8:21 AM EDT): Asymptomatic. Follows up with vascular surgery. Assessment & Plan (01/12/2018 8:23 AM EDT): No claudication. Encounters Date Type Department Care Team Description 05/09/2025 7:52 AM EDT - 05/09/2025 11:59 PM EDT Hospital Encounter [facility] [place] [address] Brandy Márquez PA-C, MPH Arrived Discharge Disposition: Home or Self Care 01/31/2025 Procedure Pass Echo [facility] [place] [place] [address] from Last 3 Months Immunizations Immunization Administration Dates Next Due INFLUENZA, SPLIT VIRUS, TRIV ALENT W/ PRESERVATIVE IM 06/14/2012,05/07/2011 Influenza High-Dose Quadriva lent Preservative Free IM 06/12/2020 Influenza High-Dose Trivalen t Preservative Free IM 06/06/2018,06/07/2017,06/15/2016 Family History Medical History Relation Comments CV disease Father 2 Relation Status Comments Father 1 Father 2 Social History Tobacco Use Types Packs/Day Years Used Date Smoking Tobacco: Former Smokeless Tobacco: Never Tobacco Cessation:Counseling Given: Not Answered Alcohol Use Standard Drinks/Week Comments Yes 0 [...] on file Sexual Orientation Not on file Last Filed Vital Signs Vital Sign Reading Time Taken Comments Blood Pressure 116/70 01/31/2025 7:53 AM EDT Pulse 90 01/31/2025 7:53 AM EDT Temperature 36.8 C (98.3 F) 06/18/2020 8:30 AM EDT Respiratory Rate - - Oxygen Saturation 96% 01/31/2025 7:53 AM EDT Inhaled Oxygen Concentration - - Weight 99.8 kg (220 lb) 01/31/2025 7:53 AM EDT Height 177.8 cm (5' 10 ) 05/31/2024 3:00 PM EDT Body Mass Index 31.57 05/31/2024 3:00 PM EDT Plan of Treatment Upcoming Encounters Date Type Department Care Team (Late st Contact Info) Description 05/23/2025 8:30 AM EDT Office Visit [facility] [address] [place] [address] Dr [address] Floor, [address] [place] [address] Rossi Martin, MARZIPAN MAKER [address] [place] [address] [email or web address] 01/30/2026 8:00 AM EDT Office Visit [facility] [address] Floor, [address] [place] [address] Kobe Ndiaye MD [address] [place] [address], [address] [place] [address] [email or web address] Health Maintenance Due Date Last Done Comments Adult Td,Tdap Booster 1936 DEPRESSION SCREENING 1948 ZOSTER VACCINES (1 of 2) 1986 RSV VACCINE (1 - 1-dose 75+ series) 2011 COVID-19 VACCINE ( season) 2024 CREATININE LEVEL 03/02/2025 03/02/2024, 03/2024, 02/14/2024, Additional history exists POTASSIUM LEVEL 03/02/2025 03/02/2024, 06/0 03/2024, 02/14/2024, Additional history exists INFLUENZA VACCINE (#1) 2025 , 06/03/2022, 06/03/2022, Additional history exists PNEUMOCOCCAL VACCINES (50+ years) Completed 02/06/2022, 06/08/2005 HEPATITIS A VACCINES Aged Out No long er eligible based on patient's age to complete this topic HIB VACCINES Aged Out No longer eligi ble based on patient's age to complete this topic MENINGOCOCCAL VACCINES (ACWY) Aged Out No longer eligible based on patient's age to complete this topic MENINGOCOCCAL VACCINES (B) Aged Out N o longer eligible based on patient's age to complete this topic Medical Devices Not on file Procedures Procedure Name Priority Date/Time Associated Diagnosis Comments TTE COMPREHENSIVE Routine 05/09/2025 9:1 9 AM EDT Secondary hypertension BASIC METABOLIC PANEL Routine 03/02/2024 8:01 AM EDT Essential hypertension from Last 3 Months or Most Recently Relevant to Health Maintenance Results * TTE COMPREHENSIVE (05/09/2025 9:19 AM [...] ovale (PFO). The interventricular septum appears normal. us Brandy Márquez PA-C, MPH CV ECHO ORDERABLES Final Result * (ABNORMAL) Basic metabolic panel (03/02/2024 8:01 AM EDT) SODIUM 142 133 - 146 mmol/L [facility] CHLORIDE 108 96 - 108 mmol/L [facility] POTASSIUM 4.5 3.3 - 5.1 mmol/L [facility] CO2 25 21 - 35 mmol/L [facility] BUN 20(H) 6 - 19 mg/dL [facility] CREATININE 1.40 0.5 - 1.5 mg/dL [facility] GLUCOSE 132(H) 70 - 99 mg/dL [facility] CALCIUM 8.8 8.4 - 10.3 mg/dL [facility] EGFR 49(L) >59 mL/min/1.7 3m2 [facility] Comment:Estimated glomerular filtration rate calculated using the CKD-EPI refit equation. ANION GAP 14 10 - 20 mmol/L [facility] Blood 03/02/2024 8:01 AM EDT 03/02/2024 8:15 AM EDT Rossi Martin [facility] BLOOD ORDERABLES Fin al Result [facility] [address] [place] [address] from Last 3 Months or Most Recently Relevant to Health Maintenance Insurance MEDICARE PART A & B [employer] MEDICARE SUPPLEMENT MEDICARE PART A & B [employer] MEDICARE SUPPLEMENT MEDICARE PART A & B [employer] MED[employer]ARE SUPPLEMENT MEDICARE PART A & B [employer] MEDICARE SUPPLEMENT MEDICARE PART A & B [facility] MEDICARE SUPPLEMENT MEDICARE PART A & B [facility] MEDICARE SUPPLEMENT MEDICARE PART A & B [facility] MEDICARE SUPPLEMENT MEDICARE PART A & B [facility] MEDICARE SUPPLEMENT MEDICARE PART A & B [facility] MEDICARE SUPPLEMENT Care Teams Profile Mill Operator Tape Control Relationship Specialty Start Date End Date Jose Paulino MD [address] [place] [phone] PCP - General Family Medicine 5/15/23 Additional Source Comments The information contained in this document represents components of the legal health record. It is not the complete legal health record.[facility]
--- OUTSIDE RECORDS SUMMARY | 2025-05-11 14:02 | XMS_ITS | Clinical Summary ---
Author Organization [facility] Address [address] [place] [address] Phone Care Team Providers Care Concrete Form Setter Name Role Phone Leonila Brooks MD Primary Care Provider [phone] Allergies No known active allergies Medications alfuzosin [...] EDT Office Visit [facility] [address] [facility] [address] [address] [place] [address] Myra Villalta MD [address] [address] [facility] [address] [place] [address] Health Maintenance Due Date Last [...] LAB CHEMISTRY METHOD 12/13/2024 10:36 AM EDT [facility] Comment: Cholesterol Risk Factors (NCEP 2004 ATP III update) Desirable: <200 mg/dL Borderline Risk: 200-239 mg/dL High Risk: >239 mg/dL Triglycerides 96 0 - 150 mg/dL LAB CHEMISTRY METHOD 12/13/2024 10:36 AM EDT [facility] HDL 44 23 - 92 mg/dL LAB CHEMISTRY METHOD 12/13/2024 10:36 AM EDT [facility] LDL Calculated 33 <100 mg/dL LAB CHEMISTRY METHOD 12/13/2024 10:36 AM EDT [facility] Comment: LDL Cholesterol Risk Factors (NCEP 2004 ATP III update) Desirable for high risk CHD: < 100 mg/dL Desirable for moderate risk CHD (2 or more risk factors): < 130 mg/dL Desirable for low risk CHD (0-1 risk factors): < 160 mg/dL VLDL Cholesterol Kevin 19.2 mg/dL LAB CHEMISTRY METHOD 12/13/2024 10:36 AM EDT [facility] Blood Venous blood specimen / Unknown Venipuncture / Unknown 12/13/2024 6:51 AM EDT 12/13/2024 6:51 AM EDT Leonila Brooks MD LAB BLOOD ORDERABLES Final Re sult [facility] [address] [place] [address], [place] [phone] * Annual BMP Blood Test (07/14/2021) Annual BMP Blood Test ABSTRACTED Historical Provider HEALTH MAINTENANCE Final Result from Last 3 Months or Most Recently Relevant to Health Maintenance [place] [address] MEDICARE [facility] Care Teams Concrete Form Setter Relationship Specialty Start Date End Date Leonila Brooks MD [address] [place] [address] PCP - General Internal Medicine 08/26/23
--- OUTSIDE RECORDS SUMMARY | 2025-05-11 14:02 | XMS_ITS | Patient Health Record ---
Author Organization Sudarshan coronado M.D., F.A.C.Racheal, F.A.CAdarsh Address [address] [facility] [address] [place] [address] Care Team Providers Care Cafe Lead Name Role Phone Vicky Delgadillo Primary Care [...] W/U Status Risk Notes Problem Pure hypercholesterolemia (128684129) Pure hypercholesterolemia (E78.0) 2009 Active confirmed Problem Abdominal aortic aneurysm without rupture (90990633) ABDOMINAL ANEURYSM WITHOUT RUPTURE (I71.4) 2009 Active confirmed Problem Atherosclerosis of coronary artery (203652277) CORONARY ATHEROSCLEROSIS OF [place] CORONARY ARTERY (I25.10) 2009 Active confirmed Problem Peripheral vascular disease (062744244) OTHER PERIPHERAL VASCULAR DISEASE (I73.89) 2010 Active confirmed Problem History of coronary artery bypass grafting (998564956) S/P CABG (Z95.1) 2009 Active confirmed Plan Of Treatment No Information
--- OUTSIDE RECORDS SUMMARY | 2025-05-11 14:02 | XMS_ITS | Patient Health Record ---
Author [facility] Address [address] [facility] [place] [address] Care Team Providers Care Cloth Sander Name Role Phone Adis Mortensen MD Primary Care Provider Vasu BradenFlora Unavailable [phone] Reason For Referral No Information Medications Medication SIG (Take, Route, Frequency, Duration) Notes Start Date End Date Status Diovan Active Aspir-81 Active Omeprazole Active Fish Oil Active Crestor Active Aspirin 81 MG 1 tablet Orally Once a day; Duration: 30 day(s) Active Multivitamins Active Problems Problem Type SNOMED Code ICD Code Onset Dates Problem Status W/U Status Risk Notes Problem Plantar fasciitis (302639584) Plantar Fasciitis (728.71) Active confirmed Problem Bursitis (22901626) Bursitis (727.3) Active confirmed Problem Calcaneal spur (47676108) Calcaneal spur (726.73) Active confirmed Problem Myositis (49878910) Myositis (729.1) Active confirmed Problem Pain in limb (77482652) Pain in Limb (729.5) Active confirmed Plan Of Treatment Pending Test Test Name Order Date X ray : Foot, left 3V 04/18/2012 X ray : Foot, right 3V 04/18/2012 [id number] TENDON SHEATH/LIGAMENT 0 05/30/2012 [id number] 3mg 05/30/2012 Insurance Providers Payer Name Payer Address Payer Phone Subscriber Number Group Number Insured Name Patient Relationship to Insured Coverage Start Date Coverage End Date Medicare National [employer]t [employer] [address] [place] [address] [id number] Antione Joe Self - patient is the insured [employer] [facility] [employer] [address] [place], [place] [address] [id number] Antione Joe Self - patient is the insured Medical (General) History Medical History History ICD Code back, hip, knee pain heart disease hypertension poor circulation Surgical History Surgery Date(Month/Year) triple bypass 2004 triplle bypass 2009
[2025-05-11 14:26] LABS: MANUAL DIFF FLAG NO
[2025-05-11 15:43] LABS: Hematocrit 37.5 % (42.0-52.0); Hemoglobin 12.2 g/dl (14.0-18.0); Imm Gran Abs Auto 0.04 X10*3/uL (0.00-0.03); Imm Gran Pct Auto 0.4 % (0.0-0.4); Lymphocytes Absolute Auto 1.6 X10*3/uL (1.2-4.9); Mean Corpuscular HGB Conc 32.5 g/dl (31.0-36.0); Mean Corpuscular Hemoglobin 28.6 pg (27.0-33.0); Mean Corpuscular Volume 88.0 fL (80.0-98.0); NRBC Abs Auto 0.000 X10*3/uL (0.0-0.012); NRBC Pct Auto 0.0 /100WBC (0.0-0.2); Platelet Count 170 X10*3/uL (160-400); Red Blood Count 4.26 X10*6/uL (4.60-5.80); White Blood Count 9.9 X10*3/uL (4.8-10.8)
[2025-05-11 16:26] LABS: Iron 42 mcg/dL (45-160); Percent Iron Saturation 18 % (15-50); Total Iron Binding Capacity 228 mcg/dL (228-428); Unsaturated Iron Binding 186 ug/dL
[2025-05-11 16:34] LABS: Ferritin 50 ng/mL (20-250)
[2025-05-11 16:51] LABS: Folate 16.1 ng/mL (> or = 4.0); Vitamin B12 456 pg/mL (200-900)
== END 2025-05-11 13:59 | disposition home or self-care (01) ==
LOC: HO.LAB 13:58
PROVIDERS: PCP Family Medicine; Visit Provider Internal Medicine
DX: D64.9 Anemia, unspecified (principal)
CPT/HCPCS: 36415; 82607; 82728; 82746; 83540; 85025